=== PATIENT | female | born 1970 | race Caucasian/White ===

== ENCOUNTER 2017-01-19 05:25 | Observation (INO) | payer BC ==
[2017-01-09 13:45] VITALS: BMI 24.0
--- NOTE | 2017-01-18 09:29 | HISTORY & PHYSICAL EXAMINATION ---
DATE OF ADMISSION: 01/19/2017 CHIEF COMPLAINT: Neck pain, arm pain, trapezius pain, scapular pain. HISTORY OF PRESENT ILLNESS: She has MRI scan demonstrating degenerative changes at C3-C4 cervical spine. No gross instability. Herniation at this level. She has had 2 years duration of symptomatology. She has failed outpatient conservative measures. PAST MEDICAL HISTORY: Positive for osteoarthritis. No carcinoma. No kidney or liver failure. Occasional acid reflux. No angina. No COPD. No diabetes mellitus. PAST SURGICAL HISTORY: Hysterectomy. ALLERGIES: PENICILLIN. SOCIAL HISTORY: Mild smoker, mild ETOH user, no drug usage. REVIEW OF SYSTEMS: Denies any blurred vision, double vision, tinnitus, vertigo. Does have associated neck pain. Admits to some numbness and tingling, no facial issues. Denies anxiety or sleeping issues. Denies chest pain or shortness of breath. No asthma, no wheezing. No nausea, vomiting. No urgency, frequency, dysuria. Her major complaint is musculoskeletal neck pain without any fevers, sweats, chills. PHYSICAL EXAMINATION: VITAL SIGNS: Blood pressure 130/80, pulse of 80, respiratory rate 16. HEAD, EYES, EARS, NOSE, AND THROAT: Pupils react to light and accommodation. Ear, nose and throat clear. No adenopathy. HEART: Normal S1, S2, no S3. LUNGS: Clear to auscultation. No rales, rhonchi or wheezing. ABDOMEN: Soft, nontender. NEUROLOGIC: Intact, 5/5 strength, good sensation, motor ability, no deficit. She has a positive Spurling maneuver with rotation and side bending. Images reviewed demonstrate severe degenerative changes C3-C4 cervical. IMPRESSION: Degenerative changes C3-4 cervical, disc herniation C3-4. DISPOSITION: Includes single level ACDF on 01/19/2017 with iliac crest bone graft.
[~2017-01-19] VITALS: Ht 167.6 cm; Wt 68.2 kg
[2017-01-19] VITALS (18 sets, daily range): BP systolic 92–127; BP diastolic 55–87; PULSE 62–87; TEMP 36.5–37; O2SAT 95–98; Ht 167.6 cm; Wt 68.2 kg
[~2017-01-19 05:25] MED LIST: [UNRECOGNIZED DRUG - CODE] PO
[2017-01-19] MEDS ORDERED: NSS 1000ML IV SCH (06:00)
[2017-01-19] MEDS ORDERED: CEFAZOLIN 2000 MG/60 ML D5W 60 ML IV SCH (06:00)
[2017-01-19] MEDS ORDERED: ROCURONIUM BROMIDE 10 MG/ML 5 ML VIAL ONE (06:43)
[2017-01-19] MEDS ORDERED: PROPOFOL IV EMULSION 10 MG/ML 20 ML VIAL IV ONE (06:43)
[2017-01-19] MEDS ORDERED: FENTANYL CITRATE INJ 50 MCG/1 ML 2 ML VIAL ONE (06:43)
[2017-01-19] MEDS ORDERED: LIDOCAINE HCL 2% 2 ML VIAL (20MG/ML) ONE (06:43)
[2017-01-19] MEDS ORDERED: GLYCOPYRROLATE INJ 0.2 MG/ML VIAL ONE (06:43)
[2017-01-19] MEDS ORDERED: ONDANSETRON INJ 2 MG/ML 2 ML VIAL ONE ×2 (06:43→07:37)
[2017-01-19] MEDS ORDERED: NEOSTIGMINE METHYLSULFATE 5 MG/5 ML SYR ONE (06:43)
[2017-01-19] MEDS ORDERED: DEXAMETHASONE SOD INJ 4 MG/ML VIAL ONE ×2 (06:43→07:37)
[2017-01-19] MEDS ORDERED: MIDAZOLAM HCL 1 MG/ML 2ML VIAL ONE (06:44)
[2017-01-19] MEDS ORDERED: HYDROmorphone INJ 2 MG/ML SYR/VIAL ONE (06:44)
[2017-01-19] MEDS ORDERED: GELATIN SPONGE SZ 100 ONE (06:52)
[2017-01-19] MEDS ORDERED: BUPIVACAINE/EPINEPHRINE 0.5% MPF 1:200,000 30 ML VIAL ONE (06:52)
[2017-01-19] MEDS ORDERED: BACITRACIN 50000 UNIT VIAL ONE (06:52)
[2017-01-19] MEDS ORDERED: THROMBIN FOR SOLN 20000 UNIT KIT ONE (06:52)
[2017-01-19] MEDS ORDERED: SODIUM CHLORIDE 0.9% INJ 10 ML VIAL ONE (06:52)
[2017-01-19] MEDS ORDERED: SCOPOLAMINE 1.5 MG TDSY TD ONE (07:10)
--- NOTE | 2017-01-19 07:11 | History & Physical Bridge Note ---
H&P Re-Evaluation Bridge Note: I have examined the patient, reviewed the History & Physical and in the interval since the performance of the History & Physical I have noted the following changes of clinical significance: No changes noted
[2017-01-19] MEDS ORDERED: LACTATED RINGER'S 1000ML 1,000 ML IV PRN (07:16)
[2017-01-19] MEDS ORDERED: METOCLOPRAMIDE HCL INJ 5 MG/ML 2 ML VIAL IV PRN (07:30)
[2017-01-19] MEDS ORDERED: DiphenhydrAMINE HCL 50 MG/ML VIAL IV PRN (07:30)
[2017-01-19] MEDS ORDERED: ONDANSETRON INJ 2 MG/ML 2 ML VIAL IV PRN ×2 (07:30→09:15)
[2017-01-19] MEDS ORDERED: KETAMINE HCL INJ 50 MG/ML 10 ML VIAL ONE (08:04)
--- NOTE | 2017-01-19 09:03 | [facility] Post Operative Brief Note ---
Immediate Operative Summary Operative Date Jan 19, 2017. Pre-Operative Diagnosis Cervical Disc Herniation C3-C4. Post-Operative Diagnosis Same as preoperative. Procedure(s) Performed C3-C4 Anterior Cervical Discectomy and Fusion with Left Iliac Crest Bone Graft Surgeon Backend Tester Surgeon(s) Guilherme Angulo PA-C Estimated Blood Loss 10ML Findings herniated disc Specimens None per surgeon. Complication(s) None Disposition Recovery Room / PACU
--- NOTE | 2017-01-19 09:06 | DIAGNOSTIC IMAGING REPORT ---
Cervical spine, INTRAOPERATIVE FLUOROSCOPY HISTORY: Diffusion. FLUOROSCOPY TIME: 4 seconds. FINDINGS: Intraoperative fluoroscopy was provided for the cervical spine. 1 fluoroscopic spot images were obtained. IMPRESSION: Fluoroscopy provided for a C3-C4 anterior cervical fusion. Electronically signed by: Jordan Schmitt M.D. 01/19/2017 9:04 AM Dictated Date/Time: 01/19/2017 9:03 AM
[2017-01-19] MEDS ORDERED: LORAZEPAM INJ 0.5 MG in SYRINGE 0.75 ML IV PRN (09:15)
[2017-01-19] MEDS ORDERED: MAGNESIUM HYDROXIDE SUSP 30 ML UDC PO PRN (09:15)
[2017-01-19] MEDS ORDERED: [UNRECOGNIZED DRUG - OTHER] PO PRN (09:15)
[2017-01-19] MEDS ORDERED: IBUPROFEN PO PRN (09:15)
[2017-01-19] MEDS ORDERED: RACEPINEPHRINE 2.25% NEBU SOLN 0.5 ML VIAL INH PRN (09:15)
[2017-01-19] MEDS ORDERED: NALOXONE HCL 0.4 MG/1 ML VIAL/CARP IV PRN (09:15)
[2017-01-19] MEDS ORDERED: DEXAMETHASONE INJ 8 MG in SYRINGE 0 ML IV PRN (09:15)
[2017-01-19] MEDS ORDERED: PSEUDOEPHEDRINE PO PRN (09:15)
[2017-01-19] MEDS ORDERED: HYDROmorphone INJ 0.5 MG/0.5 ML SYR IV PRN (09:15)
--- NOTE | 2017-01-19 09:19 | OPERATIVE REPORT ---
DATE OF OPERATION: 01/19/2017 PREOPERATIVE DIAGNOSIS: Disc herniation cervical spine C3-4. POSTOPERATIVE DIAGNOSIS: Same. PROCEDURE: Included single level ACDF cervical spine at C3-4, cervical spine left iliac crest structural autograft. SURGEON: Dr. Dubon. FULL STACK DEVELOPER: Guilherme Angulo PA-C. COMPLICATIONS: Zero. BLOOD LOSS: In total 10 mL. PROCEDURE: The patient was taken to the operating room and general intubated anesthetic provided to the patient, kept supine, scrubbed then prepped and draped sterile. We made a transverse skin incision over 3-4 of the cervical spine, dissecting the soft tissue. We used C-arm guidance. We came right in on the C3-4 interspace. Complete discectomy was obtained. We were laterally to the uncovertebral joints bilaterally, back to the posterior longitudinal ligament. All visible disc material was removed. We then went to the left iliac crest area. We made a skin incision and fascia incision. We fashioned a piece of iliac crest structural autograft. It fit perfectly interspace approximately 7 mm in height and approximately 15 mm in length. An anterior plate by the [place] placed on the anterior aspect of the vertebral bodies 3 and 4 fixed with 12 mm screws. The cross table lateral radiograph was excellent. We irrigated, closed over a Jose Maria drain with 2-0 Vicryl suture and running 4-0 Monocryl. We closed the iliac crest with #1 Vicryl, 2-0 and 3-0 nylon. Sterile dressings applied. Cervical collar applied. We were pleased with the whole procedure. There were no apparent intraoperative complications. Sponge and needle count correct at the close. I attest to the content of the Intraoperative Record and any orders documented therein. Any exceptio ns are noted below.
[2017-01-19] MEDS: FENTANYL CITRATE INJ 50 MCG/1 ML 2 ML VIAL IV PRN ×2 (09:22→09:30)
[2017-01-19] MEDS ORDERED: LABETALOL HCL IV 5 MG/ML 20ML ONE (09:24)
[2017-01-19] MEDS ORDERED: NURSING VERBAL MED ORDER ONE ×3 (09:45→18:45)
[2017-01-19] MEDS: HYDROmorphone INJ 0.5 MG/0.5 ML SYR IV PRN ×2 (09:47→10:12)
[2017-01-19] MEDS ORDERED: IV FLUIDS COMPLETED PRN (10:00)
[2017-01-19] MEDS ORDERED: LABETALOL HCL IV 5 MG/ML 20ML IV PRN (10:15)
[2017-01-19] MEDS ORDERED: HYDROmorphone INJ 1 MG/ML SYR IV PRN (11:00)
--- NOTE | 2017-01-19 11:20 | Anesthesiology Progress Note ---
Anesthesia Post Op Note Date & Time Jan 19, 2017 at 11:14 Vital Signs Pain Intensity: 5 Vital Signs Past 12 Hours Date Time Temp Pulse Resp B/P Pulse Ox O2 Delivery O2 Flow Rate FiO2 01/19/17 10:47 64 16 98 01/19/17 10:47 65 16 01/19/17 10:45 106/69 01/19/17 10:42 63 16 97 01/19/17 10:42 62 16 01/19/17 10:40 120/73 01/19/17 10:37 62 16 01/19/17 10:37 62 16 97 01/19/17 10:35 113/79 01/19/17 10:32 62 16 96 01/19/17 10:32 62 16 01/19/17 10:31 61 16 95 01/19/17 10:31 62 16 01/19/17 10:30 139/88 01/19/17 10:29 36.6 01/19/17 10:26 78 16 01/19/17 10:26 79 16 99 01/19/17 10:25 16 01/19/17 10:25 66 16 118/90 01/19/17 10:20 64 15 152/94 01/19/17 10:20 15 01/19/17 10:15 69 17 154/95 01/19/17 10:15 17 01/19/17 10:10 68 25 01/19/17 10:10 67 25 157/106 94 01/19/17 10:05 61 13 149/96 01/19/17 10:05 13 01/19/17 10:03 159/100 01/19/17 10:00 66 18 161/99 95 01/19/17 10:00 62 18 01/19/17 09:55 63 15 157/95 01/19/17 09:55 15 01/19/17 09:51 144/103 01/19/17 09:50 22 01/19/17 09:50 65 22 01/19/17 09:45 66 19 01/19/17 09:45 66 19 187/112 01/19/17 09:42 175/109 01/19/17 09:40 68 21 01/19/17 09:40 67 21 100 01/19/17 09:39 65 16 100 01/19/17 09:39 63 16 01/19/17 09:34 67 18 99 01/19/17 09:34 67 18 01/19/17 09:30 183/109 01/19/17 09:29 82 19 99 01/19/17 09:29 83 19 01/19/17 09:25 170/106 01/19/17 09:24 93 20 01/19/17 09:24 95 20 99 01/19/17 09:20 178/113 01/19/17 09:19 88 20 98 01/19/17 09:19 89 20 01/19/17 09:16 181/116 01/19/17 09:14 85 17 99 01/19/17 09:14 86 17 01/19/17 09:13 176/110 01/19/17 09:10 181/122 01/19/17 09:09 93 25 188/122 98 01/19/17 09:09 93 25 01/19/17 09:09 36.0 94 20 176/100 99 Mask 10 01/19/17 05:35 36.7 71 18 127/87 96 Room Air Notes Mental Status: alert / awake / arousable, participated in evaluation Pt Amnestic to Procedure: Yes Nausea / Vomiting: adequately controlled Pain: adequately controlled Airway Patency, RR, SpO2: stable & adequate BP & HR: stable & adequate Hydration State: stable & adequate Anesthetic Complications: no major complications apparent Pt was saying she felt like she had phlegm in her throat in PACU and having trouble swallowing. Intubation was routine and atraumatic. I saw nothing in her oropharynx. Unable to suction anything. Pt having no trouble breathing or handling secretions. We sprayed pt's cords w/ lidocaine just prior to intubation to minimize coughing from the tube, so this may be why the pt is feeling this way. I explained this to the pt and told her that this should resolve. I told her to notify her RN right away if she develops trouble breathing or handling secretions. Dr. Dubon made aware by TELECOMMUNICATIONS NETWORK ENGINEER.
[2017-01-19] MEDS ORDERED: PSEUDOEPHEDRINE HCL 30 MG TAB PO PRN (12:00)
[2017-01-19] MEDS ORDERED: IBUPROFEN 200 MG TAB PO PRN (12:00)
[2017-01-19] MEDS: SODIUM CHLORIDE 0.9% 1000ML 1,000 ML IV SCH ×2 (12:42→23:13)
[2017-01-19] MEDS: DEXAMETHASONE INJ 6 MG in SYRINGE 0 ML IV SCH ×2 (13:24→21:26)
[2017-01-19] MEDS: CLINDAMYCIN IV 600 MG in DEXTROSE 5% ADD-VANTAGE 50ML 50 ML IV SCH (16:09)
[2017-01-19] MEDS: OXYCODONE HCL IR 5 MG TAB (IMMEDIATE RELEASE) PO PRN (19:37)
[2017-01-19] MEDS: DOCUSATE SODIUM 100 MG CAP PO SCH (21:26)
[2017-01-20] VITALS (11 sets, daily range): BP systolic 91–103; BP diastolic 51–64; PULSE 56–73; TEMP 36.5–36.9; O2SAT 94–97
[2017-01-20] MEDS: CLINDAMYCIN IV 600 MG in DEXTROSE 5% ADD-VANTAGE 50ML 50 ML IV SCH ×2 (00:19→08:14)
[2017-01-20] MEDS: OXYCODONE HCL IR 5 MG TAB (IMMEDIATE RELEASE) PO PRN ×2 (02:09→09:48)
[2017-01-20] MEDS: DEXAMETHASONE INJ 6 MG in SYRINGE 0 ML IV SCH (06:03)
--- NOTE | 2017-01-20 07:39 | Anesthesiology Progress Note ---
Anesthesia Post Op Note Date & Time Jan 20, 2017 at 07:39 Vital Signs Pain Intensity: 0.0 Vital Signs Past 12 Hours Date Time Temp Pulse Resp B/P Pulse Ox O2 Delivery O2 Flow Rate FiO2 01/20/17 06:04 36.9 67 18 94/57 96 Nasal Cannula 3.0 01/20/17 06:00 36.9 67 18 94/57 96 Nasal Cannula 3.0 Humidified Oxygen 01/20/17 04:00 36.7 65 16 93/58 96 Room Air 3.0 01/20/17 03:54 36.7 65 16 93/58 96 Room Air 01/20/17 03:45 63 14 97 Nasal Cannula 3.0 01/20/17 02:13 36.9 73 16 96/60 96 Nasal Cannula 3.0 01/20/17 02:00 36.9 73 16 96/60 96 Nasal Cannula 3.0 Humidified Oxygen 01/20/17 00:00 97 Nasal Cannula 4.0 Humidified Oxygen 01/20/17 00:00 36.9 62 16 103/64 97 Nasal Cannula 4.0 Humidified Oxygen 01/20/17 00:00 36.9 62 16 103/64 97 Room Air 01/19/17 23:31 74 16 96 Nasal Cannula 4.0 01/19/17 23:10 96 Nasal Cannula 4.0 Humidified Oxygen 01/19/17 22:08 37.0 72 16 97/59 96 Nasal Cannula 4.0 Humidified Oxygen 01/19/17 21:50 37.0 72 16 97/59 96 Nasal Cannula 4.0 Humidified Oxygen 01/19/17 20:31 36.5 69 16 103/62 97 Nasal Cannula 4.0 01/19/17 20:00 36.5 69 15 103/62 95 Nasal Cannula 4.0 Humidified Oxygen 01/19/17 19:41 86 16 96 Nasal Cannula 4.0 Notes Mental Status: alert / awake / arousable, participated in evaluation Pt Amnestic to Procedure: Yes Nausea / Vomiting: adequately controlled Pain: adequately controlled Airway Patency, RR, SpO2: stable & adequate BP & HR: stable & adequate Hydration State: stable & adequate Anesthetic Complications: no major complications apparent
[2017-01-20] MEDS: DOCUSATE SODIUM 100 MG CAP PO SCH (08:14)
--- NOTE | 2017-01-20 08:34 | Discharge Instructions ---
Discharge Instructions Date of Service Jan 20, 2017. Admission Reason for Admission: C3-C4 Cervical Disc Herniation Discharge Discharge Diagnosis / Problem: neck fusion Discharge Goals Goal(s): Improve function Activity Recommendations Activity Limitations: as noted below Lifting Limitations: gradually increase as tolerated Exercise/Sports Limitations: until after follow-up appointment May Resume Sexual Activity: after follow-up appointment Shower/Bathe: keep incision dry Driving or Machine Use: rest, walk, recover . Current Hospital Diet Patient's current hospital diet: Low Fiber Diet Discharge Diet Recommended Diet: Regular Diet Fluid Restriction: None Procedures Procedures Performed: C3-C4 Anterior Cervical Discectomy and Fusion with Left Iliac Crest Bone Graft Pending Studies Studies pending at discharge: no Medical Emergencies . Who to Call and When: Medical Emergencies: If at any time you feel your situation is an emergency, please call 911 immediately. . Non-Emergent Contact Non-Emergency issues call your: Surgeon Call Non-Emergent contact if: you have any medication questions . "Provider Documentation" section prepared by Paul Dubon. VTE Core Measure Inpt VTE Proph given/why not?: Treatment not indicated
--- NOTE | 2017-01-20 08:43 | DISCHARGE SUMMARY ---
DATE OF DISCHARGE: 01/20/2017. SUBJECTIVE: Minimal complaints of pain. Alert, oriented. OBJECTIVE: Vital signs stable. Neurologically intact. Pain improved. ASSESSMENT: Status post discectomy and fusion C3-C4 cervical spine, doing well in the short run. DISPOSITION: Includes instructions, precautions, education. Dressing changed today on her iliac crest and cervical spine. Will discharge her home later on today and will see her back in the office in approximately 10 days. Her cervical collar should be worn most of the time. It can come off if she is eating. It may come off as well if she is sitting in a recliner type chair for support.
[2017-01-21] MEDS ORDERED: BISACODYL 5 MG TABEC PO PRN (06:00)
[2017-01-21] MEDS ORDERED: BISACODYL 10 MG SUPP PR PRN (06:00)
[2017-03-12] MEDS ORDERED: LACTATED RINGER'S 1000ML IV SCH (06:00)
== END 2017-01-20 11:45 | disposition home or self-care (01) ==
LOC: ENRESERVTM → ENRESERVDT → C.ACU 05:25 → C.3E 09:05
PROVIDERS: ADMIT Orthopaedic Surgery Orthopaedic Surgery of the Spine; ATTEND Orthopaedic Surgery Orthopaedic Surgery of the Spine
DX: M50.21 Other cervical disc displacement, high cervical region (principal); F17.200 Nicotine dependence, unspecified, uncomplicated; M19.90 Unspecified osteoarthritis, unspecified site; Z88.0 Allergy status to penicillin

== ENCOUNTER 2022-07-08 12:46 | Observation (INO) ==
[2022-07-08] MEDS ORDERED: OPTIRAY 300 500mL IV ONE (13:03)
--- NOTE | 2022-07-08 13:14 | Emergency Department Note ---
Impression & Plan TIA (transient ischemic attack), Arm paresthesia, left ED Provider Note NAME: DHARMESH CLIFFORD AGE: 51 SEX: F : 1970 ARRIVES VIA: Walk-In INFORMANT: Patient ED PROVIDER(S): Wilbert Soria DO CHIEF COMPLAINT: left sided paraesthesia and loss of vision HPI: Patient is a 51-year-old female with a past medical history of cervical disc disorder who presents to the ER for sudden onset of left-sided paresthesias around 1115 associated with left sided weakness. She also notes with that she lost her vision. She lost vision in the left eye only. This lasted for a total of about 30 seconds. She notes that the left-sided weakness lasted for about a minute and then resolved. No chest pain or shortness of breath. No nausea, vomiting, or diarrhea. No dysuria, urgency, or frequency. No other exacerbating or remitting factors. She feels completely back to baseline upon arrival with the exception of some persistent mild paresthesias just now only located in the left hand. The left lower extremity and left upper extremity paresthesias have completely resolved. ROS: See above HPI for pertinent positives & negatives. A total of 10 systems reviewed and were otherwise negative. PAST MEDICAL HISTORY:See Below PAST SURGICAL HISTORY:See Below FAMILY HISTORY:See Below SOCIAL HISTORY:See Below HOME MEDICATIONS:See Below ALLERGIES:See Below VITALS:See Below PHYSICAL EXAMINATION: GENERAL: Sitting up in bed, alert, well appearing, well nourished, no distress, non-toxic EYE EXAM: normal conjunctiva. PERRL and EOM's intact. OROPHARYNX: no exudate, no erythema, lips, buccal mucosa, and tongue normal and mucous membranes are moist NECK: supple, no nuchal rigidity, no adenopathy, non-tender LUNGS: Clear to auscultation. Normal chest wall mechanics HEART: no murmurs, S1 normal and S2 normal ABDOMEN: abdomen soft, non-tender, normo-active bowel sounds, no masses, no rebound or guarding. UPPER EXTREMITIES: upper extremities are grossly normal. LOWER EXTREMITIES: No pitting edema. NEURO EXAM: Normal sensorium, cranial nerves II-XII intact, normal speech, no weakness of arms, no weakness of legs. No drift. Finger to nose intact. Gross sensation intact. MEDICAL DECISION MAKING: Patient is a 51-year-old female who presents the ER for left-sided weakness and paresthesias and loss of vision of the left eye. Loss of vision and the left- sided weakness resolved after about a minute. Paresthesias lasting consequently she came in. She was a stroke alert from 20 triage take immediately to CT. IV was established blood work is obtained. Labs show no significant leukocytosis or anemia. INR unremarkable. BMP along with LFTs bilirubin and TSH was unremarkable. Troponin was negative. COVID-negative. CTA of the head and neck as well as regular noncontrast of the brain was unremarkable. I spoke with Meggan ruiz as they are initially paged when the stroke alert went out and notified them that her NIH was 0 and she was not TNK candidate. They were agreeable with the history. Paresthesias completely resolved with exception of the left hand. Her pressures were initially elevated and they trended down. She was given aspirin. Discussed with hospitalist for further evaluation. Discussed with Pt concerning signs and symptoms to watch out for. Pt was instructed to follow up with their PCP and discussed with the patient their option to return to the ED at anytime for persistent or worsening symptoms. The appropriate anticipatory guidance and out-patient management, including indications for return to the emergency department, were explained at length to the patient and understood. Triage Nursing notes reviewed. Limited review of prior medical records performed Vital Signs: reviewed and remarkable for HTN Differential diagnosis: Differential Diagnosis includes but is not limited to ischemic Stroke, hemorrhagic stroke, bells palsy, mass, neoplasm, migraine headache, seizure, subarachnoid hemorrhage, TIA, and transient global amnesia. ER treatment provided: See below Diagnostics interpreted by me: ECG: Sinus rhythm rate 76 Normal axis No PVCs T wave inversion V1 and V2 Cardiac Monitoring: An order was placed for continuous cardiac monitoring. The monitor shows a rate of 78 with sinus rhythm. Laboratory studies: As stated above and show below. Imaging studies: CT angios of the head and neck were Consultation(s): Discussed with Meggan ruiz Procedures: none Critical Care: None Past Med/Surg History Medical History Anxiety Tobacco use Surgical History (Updated 07/08/22 @ 14:14 by Jessy Kerns PA-C) H/O inguinal hernia repair History of hysterectomy Family History (Updated 07/08/22 @ 14:14 by Jessy Kerns PA-C) Father No problems noted. Other Cancer Diabetes Social History (Updated 07/08/22 @ 14:58 by Jessy Kerns PA-C) Smoking Status: Current every day smoker Tobacco Type: Cigarettes Cigarettes Per Day: 1ppd x 35 years; Second Hand Exposure: No; Do You Dip or Chew Tobacco: No; Tobacco Cessation Education Requested by Patient: No Hx Alcohol Use: No Hx Substance Use: No Preferred Language: Pashto Communication Ability: Effective Supervisor Yard Required: No Beliefs That Will Affect Care: None Current Living Situation: Spouse Other Information That Helps Us Care for You: No Feels Safe at Home: Yes Safety Concerns: Feels Safe At This Time Assistive Devices: None Allergies Allergies Allergy/AdvReac Type Severity Reaction Status Date / Time Sulfa (Sulfonamide Allergy Severe Shortness Verified 01/19/17 08:19 Antibiotics) of Breath codeine Allergy Intermediate RASH Verified 01/19/17 05:48 hydrocodone Allergy Intermediate RASH Verified 01/19/17 05:48 Penicillins Allergy Intermediate RASH Verified 01/19/17 05:48 clarithromycin Allergy Mild SHORTNESS Verified 01/19/17 05:48 OF BREATH morphine Allergy Unknown RASH Verified 01/19/17 05:48 Home Meds Home Medications Medication Instructions Recorded Confirmed naproxen 500 mg tablet 500 mg PO BID PRN Pain 07/08/22 07/08/22 Results & Data (ED) Vital Signs Vital Signs - 24 hr 07/08/22 12:50 07/08/22 13:00 07/08/22 14:06 Temperature 36.6 C Temperature Source Temporal Artery Scan Pulse Rate 85 Pulse Rate [Apical] 68 Pulse Rhythm Regular Pulse Strength Normal Respiratory Rate 18 Respiratory Effort / Characteristics Non-Labored Spontaneous Respiratory Depth Normal Respiratory Pattern Regular Blood Pressure 173/102 H Blood Pressure [Right Arm] 142/107 H Blood Pressure Mean 125 Blood Pressure Mean [Right Arm] 118 Blood Pressure Position Sitting Blood Pressure Position [Right Arm] Sitting Pulse Oximetry 97 97 Oxygen Delivery Method Room Air Room Air Room Air Sepsis Recent Fever Within 48 Hours No Sepsis New/Unexplained Change in Mental Status No Sepsis Action Taken by Nursing No Action Required 07/08/22 13:20 07/08/22 13:30 07/08/22 14:00 Temperature Temperature Source Pulse Rate 82 75 72 Pulse Rate [Apical] Pulse Rhythm Pulse Strength Respiratory Rate 18 21 19 Respiratory Effort / Characteristics Respiratory Depth Respiratory Pattern Blood Pressure Blood Pressure [Right Arm] Blood Pressure Mean Blood Pressure Mean [Right Arm] Blood Pressure Position Blood Pressure Position [Right Arm] Pulse Oximetry Oxygen Delivery Method Sepsis Recent Fever Within 48 Hours Sepsis New/Unexplained Change in Mental Status Sepsis Action Taken by Nursing 07/08/22 14:04 07/08/22 14:04 Temperature Temperature Source Pulse Rate 65 Pulse Rate [Apical] Pulse Rhythm Pulse Strength Respiratory Rate 17 Respiratory Effort / Characteristics Respiratory Depth Respiratory Pattern Blood Pressure 142/107 H Blood Pressure [Right Arm] Blood Pressure Mean 118 Blood Pressure Mean [Right Arm] Blood Pressure Position Blood Pressure Position [Right Arm] Pulse Oximetry Oxygen Delivery Method Sepsis Recent Fever Within 48 Hours Sepsis New/Unexplained Change in Mental Status Sepsis Action Taken by Nursing Laboratory Data Result diagrams: 07/08/22 13:10 07/08/22 13:10 Lab Results 07/08/22 07/08/22 07/08/22 Range/Units 13:10 13:10 13:10 WBC 9.07 (4.8-10.8) K/ul RBC 4.58 (3.93-5.22) M/uL Hgb 14.1 (12.0-16.0) g/dl Hct 41.2 (34.1-44.9) % MCV 90.0 (80.0-100.0) fL MCH 30.8 (25.0-34.0) pg MCHC 34.2 (32.0-36.0) g/dL RDW Std Deviation 45.9 (36.4-46.3) fL RDW Coeff of Alex 13.8 (11.5-14.5) % Plt Count 275 (130-400) K/uL MPV 10.3 (9.4-12.3) fL Immature Gran % (Auto) 0.3 % Neut % (Auto) 72.3 % Lymph % (Auto) 18.7 % Stanly % (Auto) 6.9 % Eos % (Auto) 0.9 % Baso % (Auto) 0.9 % Neut # (Auto) 6.55 H (1.4-6.5) K/uL Lymph # (Auto) 1.70 (1.2-3.4) K/uL Stanly # (Auto) 0.63 (0.24-0.82) K/uL Eos # (Auto) 0.08 (0-0.50) K/uL Baso # (Auto) 0.08 (0-0.2) K/uL Immature Gran # (Auto) 0.03 H (0.00-0.02) K/uL PT 10.7 (9.0-12.0) Seconds INR 1.0 (0.9-1.1) APTT 29.6 (21.0-31.0) Seconds PTT Ratio 1.1 Sodium 137 (136-145) mmol/L Potassium 3.7 (3.5-5.1) mmol/L Chloride 106 (98-107) mmol/L Carbon Dioxide 26 (21-32) mmol/L Anion Gap 5 (3-11) BUN 14 (6-23) mg/dl Creatinine 0.64 (0.6-1.2) mg/dl Est Cr Clr Drug Dosing 103.9 ml/min Est GFR ( Amer) 119.7 ml/min Est GFR (Non-Af Amer) 103.3 ml/min BUN/Creatinine Ratio 21.9 H (10-20) Glucose 85 (70-99(Fasting)) mg/dl Calcium 9.6 (8.5-10.1) mg/dl Magnesium 2.1 (1.7-2.4) mg/dl Total Bilirubin 0.7 (0.2-1.0) mg/dl AST 13 (13-39) U/L ALT 12 (7-52) U/L Alkaline Phosphatase 92 (34-104) U/L Troponin I High Sens 4.3 (0-14) pg/ml Total Protein 6.9 (6.0-8.3) gm/dl Albumin 4.1 (3.4-5.0) gm/dl Globulin 2.8 (2.5-4.0) gm/dl Albumin/Globulin Ratio 1.5 (0.9-2) TSH (0.300-4.500) uIu/ml SARS-CoV-2, RNA, NAAT (NEGATIVE) 07/08/22 07/08/22 Range/Units 13:14 13:15 WBC (4.8-10.8) K/ul RBC (3.93-5.22) M/uL Hgb (12.0-16.0) g/dl Hct (34.1-44.9) % MCV (80.0-100.0) fL MCH (25.0-34.0) pg MCHC (32.0-36.0) g/dL RDW Std Deviation (36.4-46.3) fL RDW Coeff of Alex (11.5-14.5) % Plt Count (130-400) K/uL MPV (9.4-12.3) fL Immature Gran % (Auto) % Neut % (Auto) % Lymph % (Auto) % Stanly % (Auto) % Eos % (Auto) % Baso % (Auto) % Neut # (Auto) (1.4-6.5) K/uL Lymph # (Auto) (1.2-3.4) K/uL Stanly # (Auto) (0.24-0.82) K/uL Eos # (Auto) (0-0.50) K/uL Baso # (Auto) (0-0.2) K/uL Immature Gran # (Auto) (0.00-0.02) K/uL PT (9.0-12.0) Seconds INR (0.9-1.1) APTT (21.0-31.0) Seconds PTT Ratio Sodium (136-145) mmol/L Potassium (3.5-5.1) mmol/L Chloride (98-107) mmol/L Carbon Dioxide (21-32) mmol/L Anion Gap (3-11) BUN (6-23) mg/dl Creatinine (0.6-1.2) mg/dl Est Cr Clr Drug Dosing ml/min Est GFR ( Amer) ml/min Est GFR (Non-Af Amer) ml/min BUN/Creatinine Ratio (10-20) Glucose (70-99(Fasting)) mg/dl Calcium (8.5-10.1) mg/dl Magnesium (1.7-2.4) mg/dl Total Bilirubin (0.2-1.0) mg/dl AST (13-39) U/L ALT (7-52) U/L Alkaline Phosphatase (34-104) U/L Troponin I High Sens (0-14) pg/ml Total Protein (6.0-8.3) gm/dl Albumin (3.4-5.0) gm/dl Globulin (2.5-4.0) gm/dl Albumin/Globulin Ratio (0.9-2) TSH 1.021 (0.300-4.500) uIu/ml SARS-CoV-2, RNA, NAAT NEGATIVE (NEGATIVE) Administered Medications Aspirin (Aspirin Chew 324 Mg) 324 mg PO NOW STA Stop: 07/08/22 14:12 Last Admin: 07/08/22 14:29 Dose: Not Given Documented By: DESTINEE Ioversol (Optiray 300 500ml) 120 ml IV ONCE ONE Stop: 07/08/22 13:04 Last Admin: 07/08/22 13:03 Dose: 120 ml Documented By: JACI(2) Imaging Data Radiologist's Impression: Chest X-Ray 07/08/22 12:54 XR chest 1V portable HISTORY: Stroke symptoms. COMPARISON: Chest 11/16/2013. FINDINGS: The heart is normal in size. No pleural effusions. No pneumothorax. No focal lung consolidations to suggest pneumonia. No evidence for pulmonary edema. Small linear scarlike density seen within the right lung apex. IMPRESSION: No acute process. ACT 112: Negative or not required by law. Electronically signed by: Uriah Sumner M.D. 07/08/2022 1:[address] 07/08/22 12:[address] OF THE BRAIN; CT ANGIOGRAM OF THE BRAIN; CT ANGIOGRAM OF THE NECK CLINICAL HISTORY: Strokelike symptoms. COMPARISON STUDY: CT of the brain dated 01/15/2012. TECHNIQUE: Unenhanced axial CT scan of the brain is performed. Subsequently, following the IV administration of 120 of Optiray 320, CT angiogram of the head and neck was performed from the aortic arch to the vertex. Images are reviewed in the axial, sagittal, and coronal planes. 3-D MIPS images are created and assessed. IV contrast was administered without complication. All measurements were calculated based on NASCET criteria. A dose lowering technique was utilized adhering to the principles of ALARA. CT DOSE: 1091.20 mGy.cm FINDINGS: Brain parenchyma: The brain parenchyma is normal in appearance. There is no hemorrhage, mass effect, or evidence of acute territorial ischemia by CT criteria. There is no evidence of enhancing mass lesion on the angiogram phase images. The ventricles, sulci, and cisterns are normal in configuration. Mena- white matter differentiation is preserved. No extra-axial fluid collection is seen. Thoracic aorta: Visualized portions of the thoracic aorta are normal in caliber. The aortic arch demonstrates standard 3-vessel anatomy. Right carotid arterial system: Atherosclerotic plaque causes less than 50% luminal narrowing of the distal right common carotid artery. The remainder of the right common carotid artery is widely patent. There is mild to moderate stenosis at the origin of the right external carotid artery. The right internal carotid artery is widely patent. Left carotid arterial system: The left common carotid artery is widely patent, as are the left internal and external carotid arteries. Vertebral arteries: The vertebral arteries are widely patent bilaterally noting left-sided dominance. Subclavian arteries: Widely patent bilaterally. Intracranial vasculature: The internal carotid arteries are patent at the skull base, as are the anterior and middle cerebral arteries bilaterally. The vertebrobasilar system and posterior cerebral arteries are widely patent. There are bilateral posterior communicating arteries. The left vertebral artery is d ominant. The right vertebral artery is diminutive and terminates as the PICA. There is no aneurysm, high-grade stenosis, or focal vessel cut off seen throughout the intracranial circulation. Jugular veins: Patent bilaterally. Dural sinuses: Patent. Lung apices: There is advanced emphysema. Upper lobe lung parenchyma is o therwise clear as imaged. Soft tissues: The visualized pharyngeal soft tissues are normal in appearance noting angiographic phase technique. The oropharyngeal airway appears widely patent. The salivary and thyroid glands are normal in appearance. No cervical lymphadenopathy is seen. Skeletal structures: The skeletal structures appear osteopenic. The calvarium appears intact. The cervical spine is maintained noting mild multilevel cervical spondylosis and postoperative change from C3-C4 spinal fusion. No lytic or blastic lesion is seen. Orbits: The bony orbits are intact. Orbital contents are normal as visualized. Sinuses and mastoids: The paranasal sinuses are clear. The mastoid air cells are well pneumatized. IMPRESSION: 1. There is no hemorrhage, mass effect, or evidence of acute territorial ischemia by CT criteria. 2. Unremarkable CT scan of the brain. 3. Unremarkable CT angiogram of the neck noting significant atherosclerotic plaque in the distal right common carotid artery. 4. Advanced emphysema. ACT 112: Negative or not required by law. Electronically signed by: Gwyn Painting M.D. 07/08/2022 1:41 PM Head CTA 07/08/22 12:[address] OF THE BRAIN; CT ANGIOGRAM OF THE BRAIN; CT ANGIOGRAM OF THE NECK CLINICAL HISTORY: Strokelike symptoms. COMPARISON STUDY: CT of the brain dated 01/15/2012. TECHNIQUE: Unenhanced axial CT scan of the brain is performed. Subsequently, following the IV administration of 120 of Optiray 320, CT angiogram of the head and neck was performed from the aortic arch to the vertex. Images are reviewed in the axial, sagittal, and coronal planes. 3-D MIPS images are created and assessed. IV contrast was administered without complication. All measurements were calculated based on NASCET criteria. A dose lowering technique was utilized adhering to the principles of ALARA. CT DOSE: 1091.20 mGy.cm FINDINGS: Brain parenchyma: The brain parenchyma is normal in appearance. There is no hemorrhage, mass effect, or evidence of acute territorial ischemia by CT criteria. There is no evidence of enhancing mass lesion on the angiogram phase images. The ventricles, sulci, and cisterns are normal in configuration. Mena- white matter differentiation is preserved. No extra-axial fluid collection is seen. Thoracic aorta: Visualized portions of the thoracic aorta are normal in caliber. The aortic arch demonstrates standard 3-vessel anatomy. Right carotid arterial system: Atherosclerotic plaque causes less than 50% luminal narrowing of the distal right common carotid artery. The remainder of the right common carotid artery is widely patent. There is mild to moderate stenosis at the origin of the right external carotid artery. The right internal carotid artery is widely patent. Left carotid arterial system: The left common carotid artery is widely patent, as are the left internal and external carotid arteries. Vertebral arteries: The vertebral arteries are widely patent bilaterally noting left-sided dominance. Subclavian arteries: Widely patent bilaterally. Intracranial vasculature: The internal carotid arteries are patent at the skull base, as are the anterior and middle cerebral arteries bilaterally. The vertebrobasilar system and posterior cerebral arteries are widely patent. There are bilateral posterior communicating arteries. The left vertebral artery is do minant. The right vertebral artery is diminutive and terminates as the PICA. There is no aneurysm, high-grade stenosis, or focal vessel cut off seen throughout the intracranial circulation. Jugular veins: Patent bilaterally. Dural sinuses: Patent. Lung apices: There is advanced emphysema. Upper lobe lung parenchyma is ot herwise clear as imaged. Soft tissues: The visualized pharyngeal soft tissues are normal in appearance noting angiographic phase technique. The oropharyngeal airway appears widely patent. The salivary and thyroid glands are normal in appearance. No cervical lymphadenopathy is seen. Skeletal structures: The skeletal structures appear osteopenic. The calvarium appears intact. The cervical spine is maintained noting mild multilevel cervical spondylosis and postoperative change from C3-C4 spinal fusion. No lytic or blastic lesion is seen. Orbits: The bony orbits are intact. Orbital contents are normal as visualized. Sinuses and mastoids: The paranasal sinuses are clear. The mastoid air cells are well pneumatized. IMPRESSION: 1. There is no hemorrhage, mass effect, or evidence of acute territorial ischemia by CT criteria. 2. Unremarkable CT scan of the brain. 3. Unremarkable CT angiogram of the neck noting significant atherosclerotic plaque in the distal right common carotid artery. 4. Advanced emphysema. ACT 112: Negative or not required by law. Electronically signed by: Gwyn Painting M.D. 07/08/2022 1:41 PM Neck CTA 07/08/22 12:[address] OF THE BRAIN; CT ANGIOGRAM OF THE BRAIN; CT ANGIOGRAM OF THE NECK CLINICAL HISTORY: Strokelike symptoms. COMPARISON STUDY: CT of the brain dated 01/15/2012. TECHNIQUE: Unenhanced axial CT scan of the brain is performed. Subsequently, following the IV administration of 120 of Optiray 320, CT angiogram of the head and neck was performed from the aortic arch to the vertex. Images are reviewed in the axial, sagittal, and coronal planes. 3-D MIPS images are created and assessed. IV contrast was administered without complication. All measurements were calculated based on NASCET criteria. A dose lowering technique was utilized adhering to the principles of ALARA. CT DOSE: 1091.20 mGy.cm FINDINGS: Brain parenchyma: The brain parenchyma is normal in appearance. There is no hemorrhage, mass effect, or evidence of acute territorial ischemia by CT criteria. There is no evidence of enhancing mass lesion on the angiogram phase images. The ventricles, sulci, and cisterns are normal in configuration. Mena- white matter differentiation is preserved. No extra-axial fluid collection is seen. Thoracic aorta: Visualized portions of the thoracic aorta are normal in caliber. The aortic arch demonstrates standard 3-vessel anatomy. Right carotid arterial system: Atherosclerotic plaque causes less than 50% luminal narrowing of the distal right common carotid artery. The remainder of the right common carotid artery is widely patent. There is mild to moderate stenosis at the origin of the right external carotid artery. The right internal carotid artery is widely patent. Left carotid arterial system: The left common carotid artery is widely patent, as are the left internal and external carotid arteries. Vertebral arteries: The vertebral arteries are widely patent bilaterally noting left-sided dominance. Subclavian arteries: Widely patent bilaterally. Intracranial vasculature: The internal carotid arteries are patent at the skull base, as are the anterior and middle cerebral arteries bilaterally. The vertebrobasilar system and posterior cerebral arteries are widely patent. There are bilateral posterior communicating arteries. The left vertebral artery is dom inant. The right vertebral artery is diminutive and terminates as the PICA. There is no aneurysm, high-grade stenosis, or focal vessel cut off seen throughout the intracranial circulation. Jugular veins: Patent bilaterally. Dural sinuses: Patent. Lung apices: There is advanced emphysema. Upper lobe lung parenchyma is oth erwise clear as imaged. Soft tissues: The visualized pharyngeal soft tissues are normal in appearance noting angiographic phase technique. The oropharyngeal airway appears widely patent. The salivary and thyroid glands are normal in appearance. No cervical lymphadenopathy is seen. Skeletal structures: The skeletal structures appear osteopenic. The calvarium appears intact. The cervical spine is maintained noting mild multilevel cervical spondylosis and postoperative change from C3-C4 spinal fusion. No lytic or blastic lesion is seen. Orbits: The bony orbits are intact. Orbital contents are normal as visualized. Sinuses and mastoids: The paranasal sinuses are clear. The mastoid air cells are well pneumatized. IMPRESSION: 1. There is no hemorrhage, mass effect, or evidence of acute territorial ischemia by CT criteria. 2. Unremarkable CT scan of the brain. 3. Unremarkable CT angiogram of the neck noting significant atherosclerotic plaque in the distal right common carotid artery. 4. Advanced emphysema. ACT 112: Negative or not required by law. Electronically signed by: Gwyn Painting M.D. 07/08/2022 1:41 PM Discharge Plan Visit Data Chief Complaint: Neuro Symptoms/Deficit Stated Complaint: L SIDE NUMB, WEAKNESS, NO VISION IN L EYE ED Provider: Wilbert Soria Discharge Problem: TIA (transient ischemic attack), Arm paresthesia, left Patient Disposition: Admitted As Inpatient Discharge Instructions Interventions: ED Discharge Assessment Last Done: 07/08/22 15:36
--- NOTE | 2022-07-08 13:20 | XRay Report ---
XR chest 1V portable HISTORY: Stroke symptoms. COMPARISON: Chest 11/16/2013. FINDINGS: The heart is normal in size. No pleural effusions. No pneumothorax. No focal lung consolida tions to suggest pneumonia. No evidence for pulmonary edema. Small linear scarlike density seen withi n the right lung apex. IMPRESSION: No acute process. ACT 112: Negative or not required by law. Electronically signed by: Uriah Sumner M.D. 07/08/2022 1:19 PM
[2022-07-08 13:34] LABS: Basophils # (auto) 0.08 K/uL (0-0.2); Basophils % (auto) 0.9 %; Eosinophils # (auto) 0.08 K/uL (0-0.50); Eosinophils % (auto) 0.9 %; Hematocrit (blood only) 41.2 % (34.1-44.9); Hemoglobin 14.1 g/dl (12.0-16.0); Immature Granulocytes # (auto) 0.03 K/uL (0.00-0.02); Immature Granulocytes % (auto) 0.3 %; Lymphocytes % (auto) 18.7 %; Mean Corpuscular Hemoglobin 30.8 pg (25.0-34.0); Mean Corpuscular Hgb Conc 34.2 g/dL (32.0-36.0); Mean Platelet Volume 10.3 fL (9.4-12.3); Monocytes # (auto) 0.63 K/uL (0.24-0.82); Monocytes % (auto) 6.9 %; Neutrophils # (auto) 6.55 K/uL (1.4-6.5); Neutrophils % (auto) 72.3 %; Platelet Count 275 K/uL (130-400); RDW Coefficient of Variation 13.8 % (11.5-14.5); RDW Standard Deviation 45.9 fL (36.4-46.3); Red Blood Count 4.58 M/uL (3.93-5.22); White Blood Count 9.07 K/ul (4.8-10.8)
--- NOTE | 2022-07-08 13:43 | CT Scan Report ---
UNENHANCED CT OF THE BRAIN; CT ANGIOGRAM OF THE BRAIN; CT ANGIOGRAM OF THE NECK CLINICAL HISTORY: Strokelike symptoms. COMPARISON STUDY: CT of the brain dated 01/15/2012. TECHNIQUE: Unenhanced axial CT scan of the brain is performed. Subsequently, following the IV adminis tration of 120 of Optiray 320, CT angiogram of the head and neck was performed from the aortic arch t o the vertex. Images are reviewed in the axial, sagittal, and coronal planes. 3-D MIPS images are cre ated and assessed. IV contrast was administered without complication. All measurements were calculate d based on NASCET criteria. A dose lowering technique was utilized adhering to the principles of ALA RA. CT DOSE: 1091.20 mGy.cm FINDINGS: Brain parenchyma: The brain parenchyma is normal in appearance. There is no hemorrhage, mass effect, or evidence of acute territorial ischemia by CT criteria. There is no evidence of enhancing mass lesi on on the angiogram phase images. The ventricles, sulci, and cisterns are normal in configuration. Gr ay-white matter differentiation is preserved. No extra-axial fluid collection is seen. Thoracic aorta: Visualized portions of the thoracic aorta are normal in caliber. The aortic arch demo nstrates standard 3-vessel anatomy. Right carotid arterial system: Atherosclerotic plaque causes less than 50% luminal narrowing of the d istal right common carotid artery. The remainder of the right common carotid artery is widely patent. There is mild to moderate stenosis at the origin of the right external carotid artery. The right int ernal carotid artery is widely patent. Left carotid arterial system: The left common carotid artery is widely patent, as are the left university internship al and external carotid arteries. Vertebral arteries: The vertebral arteries are widely patent bilaterally noting left-sided dominance. Subclavian arteries: Widely patent bilaterally. Intracranial vasculature: The internal carotid arteries are patent at the skull base, as are the ante rior and middle cerebral arteries bilaterally. The vertebrobasilar system and posterior cerebral alhaji dedrick are widely patent. There are bilateral posterior communicating arteries. The left vertebral alhaji ry is dominant. The right vertebral artery is diminutive and terminates as the PICA. There is no aneu rysm, high-grade stenosis, or focal vessel cut off seen throughout the intracranial circulation. Jugular veins: Patent bilaterally. Dural sinuses: Patent. Lung apices: There is advanced emphysema. Upper lobe lung parenchyma is otherwise clear as imaged. Soft tissues: The visualized pharyngeal soft tissues are normal in appearance noting angiographic pha se technique. The oropharyngeal airway appears widely patent. The salivary and thyroid glands are nor mal in appearance. No cervical lymphadenopathy is seen. Skeletal structures: The skeletal structures appear osteopenic. The calvarium appears intact. The cer vical spine is maintained noting mild multilevel cervical spondylosis and postoperative change from C 3-C4 spinal fusion. No lytic or blastic lesion is seen. Orbits: The bony orbits are intact. Orbital contents are normal as visualized. Sinuses and mastoids: The paranasal sinuses are clear. The mastoid air cells are well pneumatized. IMPRESSION: 1. There is no hemorrhage, mass effect, or evidence of acute territorial ischemia by CT criteria. 2. Unremarkable CT scan of the brain. 3. Unremarkable CT angiogram of the neck noting significant atherosclerotic plaque in the distal righ t common carotid artery. 4. Advanced emphysema. ACT 112: Negative or not required by law. Electronically signed by: Gwyn Painting M.D. 07/08/2022 1:41 PM
[2022-07-08 13:49] LABS: Partial Thromboplastin Ratio 1.1; Partial Thromboplastin Time 29.6 Seconds (21.0-31.0); Prothrombin Time 10.7 Seconds (9.0-12.0)
[2022-07-08 14:01] LABS: Albumin Globulin Ratio 1.5 (0.9-2); Albumin Level 4.1 gm/dl (3.4-5.0); BUN Creatinine Ratio 21.9 (10-20); Bilirubin,Total 0.7 mg/dl (0.2-1.0); Calcium 9.6 mg/dl (8.5-10.1); Creatinine Clr Calc Pharmacy 103.9 ml/min; Est GFR (African American) 119.7 ml/min; Est GFR (Non-African American) 103.3 ml/min; Globulin 2.8 gm/dl (2.5-4.0); Magnesium 2.1 mg/dl (1.7-2.4); Potassium 3.7 mmol/L (3.5-5.1); Total Protein 6.9 gm/dl (6.0-8.3); Troponin I High Sensitivity 4.3 pg/ml (0-14)
[2022-07-08] MEDS ORDERED: ASPIRIN CHEW 324 MG PO STA (14:11)
--- NOTE | 2022-07-08 14:14 | History & Physical Report ---
Date of Service July 08, 2022 Assessment & Plan (1) Stroke-like symptoms: Plan: Patient is 51 y/o F with PMH anxiety, tobacco use presented to ER with c/o left sided weakness. Patient reports around 11:15am today was washing her deck when had sudden onset of vision loss to left eye, left arm and leg paresthesias and weakness. Left eye vision loss lasted ~ 30 seconds and left upper and lower extremity weakness lasted one minute. Since ER arrival her paresthesias are resolving and now just remain to left hand. In ER patient hypertensive BP: 173/102, 142/107, labs unremarkable CT head, CTA head: No hemorrhage, mass effect, or evidence of acute territorial ischemia by CT criteria. CTA neck: Unremarkable CTA of the neck, <50% atherosclerotic plaque in the distal right common carotid artery. Had telestroke neurology consult in ER recommended hospitalization for further stroke workup. Patient took Anacin (400mg aspirin +32mg caffeine OTC med DDX: TIA, stroke, atypical migraine -Tele to monitor for arrhythmias -Lipid, A1c, TSH in am -MRI brain -echo with bubble study -aspiration precautions -PT/OT consult -Start daily aspirin -allow permissive HTN, labetalol SBP>180 in 1st 24 hrs -neurology consult (2) Elevated blood pressure reading: Plan: In ER BP: 173/102, 142/107 No history hypertension -Allow permissive HTN with possible stroke -Monitor (3) Tobacco use: Plan: -Smoking cessation encouraged. Patient motivated -Nicotine patch DVT Prophylaxis -SCDs Full Code as per discussion with pt Follows with Dr Motley for routine care Pt was seen and care coordinated with Dr Malave. See addendum History of Present Illness Chief Complaint: weakness Primary Care Provider: Kiki Motley DO Patient is 51 y/o F with PMH anxiety, tobacco use presented to ER with c/o left sided weakness. Patient reports around 11:15am today was washing her deck when had sudden onset of vision loss to left eye, left arm and leg paresthesias and weakness. Patient reports almost fell secondary to left leg weakness. Her left eye vision loss lasted approximately 30 seconds and left upper and lower extremity weakness lasted one minute. Since ER arrival her paresthesias are resolving and now just remain to left hand. She reports taking Anacin (400mg aspirin +32mg caffeine OTC med) prior to arrival. She reports +COVID 06/15/22 with URI symptoms that have completely resolved. Patient states has been under a lot of stress recently with of her brother and mother. Denies fever/chills, diaphoresis, N/V/D/C, LEIGH, dizziness, syncope, neck pain, CP, SOB, orthopnea, palpitations, cough, sore throat, choking, otalgia, rhinorrhea, abdominal pain, extremity edema, rashes, urinary symptoms. In ER patient hypertensive, CT head, CTA head and neck unremarkable. Had te lestroke neurology consult in ER recommended hospitalization for further stroke workup. Allergies Allergy/AdvReac Type Severity Reaction Status Date / Time Sulfa (Sulfonamide Allergy Severe Shortness Verified 01/19/17 08:19 Antibiotics) of Breath codeine Allergy Intermediate RASH Verified 01/19/17 05:48 hydrocodone Allergy Intermediate RASH Verified 01/19/17 05:48 Penicillins Allergy Intermediate RASH Verified 01/19/17 05:48 clarithromycin Allergy Mild SHORTNESS Verified 01/19/17 05:48 OF BREATH morphine Allergy Unknown RASH Verified 01/19/17 05:48 Home Medications Medication Instructions Recorded Confirmed Type naproxen 500 mg tablet 500 mg PO BID PRN Pain 07/08/22 07/08/22 History Past Med/Surg History Medical History Anxiety Tobacco use Surgical History (Updated 07/08/22 @ 14:14 by Jessy Kerns PA-C) H/O inguinal hernia repair History of hysterectomy Family History (Updated 07/08/22 @ 14:14 by Jessy Kerns PA-C) Father No problems noted. Other Cancer Diabetes Social History (Updated 07/08/22 @ 14:58 by Jessy Kerns PA-C) Smoking Status: Current every day smoker Tobacco Type: Cigarettes Cigarettes Per Day: 1ppd x 35 years; Second Hand Exposure: No; Do You Dip or Chew Tobacco: No; Tobacco Cessation Education Requested by Patient: No Hx Alcohol Use: No Hx Substance Use: No Preferred Language: Japanese Communication Ability: Effective Center Medical Director Required: No Beliefs That Will Affect Care: None Current Living Situation: Spouse Other Information That Helps Us Care for You: No Feels Safe at Home: Yes Safety Concerns: Feels Safe At This Time Assistive Devices: None Review of Systems Review of Systems: All systems reviewed & are unremarkable except as noted in HPI & below Physical Exam Physical Exam: General: no distress, WDWN Head: normocephalic, atraumatic Eyes: PERRL, EOM's intact, conjunctiva non-injected, anicteric ENT: normal inspection external ears, nose, mucous membranes moist Neck: supple, trachea midline Lungs: clear, no respiratory distress, no wheezing/rhonchi/rales CV: RRR, no murmur, no pretibial edema Abd: normal BS, soft, non-tender Ext: no cyanosis, no calf tenderness Neuro: A&O x 3, normal affect. Visual trimble intact. No nystagmus. Facial sensation is intact and symmetric. The face is strong and symmetric. Hearing grossly intact. Soft palate elevates symmetrically, no dysarthria. Shoulder shrug intact. Tongue is midline, normal movement, no fasciculations. muscle tone normal. Strength 5/5 throughout. Bilateral arm and leg sensation intact and symmetric Skin: warm, dry Results & Data Results & Data ([facility]) Vital Signs (Past 12 Hours) Vital Signs Temp Pulse Pulse Resp BP BP Pulse Ox 07/08/22 14:06 68 142/107 H 07/08/22 13:00 97 07/08/22 12:50 36.6 C 85 18 173/102 H 97 O2 Del Method 07/08/22 14:06 Room Air 07/08/22 13:00 Room Air 07/08/22 12:50 Room Air Laboratory Results Short CBC 07/08/22 Range/Units 13:10 WBC 9.07 (4.8-10.8) K/ul Hgb 14.1 (12.0-16.0) g/dl Hct 41.2 (34.1-44.9) % Plt Count 275 (130-400) K/uL BMP 07/08/22 13:10 Sodium 137 Potassium 3.7 Chloride 106 Carbon Dioxide 26 BUN 14 Creatinine 0.64 Glucose 85 Calcium 9.6 Liver Function 07/08/22 Range/Units 13:10 Total Bilirubin 0.7 (0.2-1.0) mg/dl AST 13 (13-39) U/L ALT 12 (7-52) U/L Alkaline Phosphatase 92 (34-104) U/L Albumin 4.1 (3.4-5.0) gm/dl Diagnostic Findings Chest X-Ray 07/08/22 12:54 XR chest 1V portable HISTORY: Stroke symptoms. COMPARISON: Chest 11/16/2013. FINDINGS: The heart is normal in size. No pleural effusions. No pneumothorax. No focal lung consolidations to suggest pneumonia. No evidence for pulmonary edema. Small linear scarlike density seen within the right lung apex. IMPRESSION: No acute process. ACT 112: Negative or not required by law. Electronically signed by: Uriah Sumner M.D. 07/08/2022 1:[address] 07/08/22 12:[address] OF THE BRAIN; CT ANGIOGRAM OF THE BRAIN; CT ANGIOGRAM OF THE NECK CLINICAL HISTORY: Strokelike symptoms. COMPARISON STUDY: CT of the brain dated 01/15/2012. TECHNIQUE: Unenhanced axial CT scan of the brain is performed. Subsequently, following the IV administration of 120 of Optiray 320, CT angiogram of the head and neck was performed from the aortic arch to the vertex. Images are reviewed in the axial, sagittal, and coronal planes. 3-D MIPS images are created and assessed. IV contrast was administered without complication. All measurements were calculated based on NASCET criteria. A dose lowering technique was utilized adhering to the principles of ALARA. CT DOSE: 1091.20 mGy.cm FINDINGS: Brain parenchyma: The brain parenchyma is normal in appearance. There is no hemorrhage, mass effect, or evidence of acute territorial ischemia by CT criteria. There is no evidence of enhancing mass lesion on the angiogram phase images. The ventricles, sulci, and cisterns are normal in configuration. Mena- white matter differentiation is preserved. No extra-axial fluid collection is seen. Thoracic aorta: Visualized portions of the thoracic aorta are normal in caliber. The aortic arch demonstrates standard 3-vessel anatomy. Right carotid arterial system: Atherosclerotic plaque causes less than 50% luminal narrowing of the distal right common carotid artery. The remainder of the right common carotid artery is widely patent. There is mild to moderate stenosis at the origin of the right external carotid artery. The right internal carotid artery is widely patent. Left carotid arterial system: The left common carotid artery is widely patent, as are the left internal and external carotid arteries. Vertebral arteries: The vertebral arteries are widely patent bilaterally noting left-sided dominance. Subclavian arteries: Widely patent bilaterally. Intracranial vasculature: The internal carotid arteries are patent at the skull base, as are the anterior and middle cerebral arteries bilaterally. The vertebrobasilar system and posterior cerebral arteries are widely patent. There are bilateral posterior communicating arteries. The left vertebral artery is dominant. The right vertebral artery is diminutive and terminates as the PICA. There is no aneurysm, high-grade stenosis, or focal vessel cut off seen throughout the intracranial circulation. Jugular veins: Patent bilaterally. Dural sinuses: Patent. Lung apices: There is advanced emphysema. Upper lobe lung parenchyma is otherwise clear as imaged. Soft tissues: The visualized pharyngeal soft tissues are normal in appearance noting angiographic phase technique. The oropharyngeal airway appears widely patent. The salivary and thyroid glands are normal in appearance. No cervical lymphadenopathy is seen. Skeletal structures: The skeletal structures appear osteopenic. The calvarium appears intact. The cervical spine is maintained noting mild multilevel cervical spondylosis and postoperative change from C3-C4 spinal fusion. No lytic or blastic lesion is seen. Orbits: The bony orbits are intact. Orbital contents are normal as visualized. Sinuses and mastoids: The paranasal sinuses are clear. The mastoid air cells are well pneumatized. IMPRESSION: 1. There is no hemorrhage, mass effect, or evidence of acute territorial ischemia by CT criteria. 2. Unremarkable CT scan of the brain. 3. Unremarkable CT angiogram of the neck noting significant atherosclerotic plaque in the distal right common carotid artery. 4. Advanced emphysema. ACT 112: Negative or not required by law. Electronically signed by: Gwyn Painting M.D. 07/08/2022 1:41 PM Head CTA 07/08/22 12:[address] OF THE BRAIN; CT ANGIOGRAM OF THE BRAIN; CT ANGIOGRAM OF THE NECK CLINICAL HISTORY: Strokelike symptoms. COMPARISON STUDY: CT of the brain dated 01/15/2012. TECHNIQUE: Unenhanced axial CT scan of the brain is performed. Subsequently, following the IV administration of 120 of Optiray 320, CT angiogram of the head and neck was performed from the aortic arch to the vertex. Images are reviewed in the axial, sagittal, and coronal planes. 3-D MIPS images are created and assessed. IV contrast was administered without complication. All measurements were calculated based on NASCET criteria. A dose lowering technique was utilized adhering to the principles of ALARA. CT DOSE: 1091.20 mGy.cm FINDINGS: Brain parenchyma: The brain parenchyma is normal in appearance. There is no hemorrhage, mass effect, or evidence of acute territorial ischemia by CT criteria. There is no evidence of enhancing mass lesion on the angiogram phase images. The ventricles, sulci, and cisterns are normal in configuration. Mena- white matter differentiation is preserved. No extra-axial fluid collection is seen. Thoracic aorta: Visualized portions of the thoracic aorta are normal in caliber. The aortic arch demonstrates standard 3-vessel anatomy. Right carotid arterial system: Atherosclerotic plaque causes less than 50% luminal narrowing of the distal right common carotid artery. The remainder of the right common carotid artery is widely patent. There is mild to moderate stenosis at the origin of the right external carotid artery. The right internal carotid artery is widely patent. Left carotid arterial system: The left common carotid artery is widely patent, as are the left internal and external carotid arteries. Vertebral arteries: The vertebral arteries are widely patent bilaterally noting left-sided dominance. Subclavian arteries: Widely patent bilaterally. Intracranial vasculature: The internal carotid arteries are patent at the skull base, as are the anterior and middle cerebral arteries bilaterally. The vertebrobasilar system and posterior cerebral arteries are widely patent. There are bilateral posterior communicating arteries. The left vertebral artery is dominant. The right vertebral artery is diminutive and terminates as the PICA. There is no aneurysm, high-grade stenosis, or focal vessel cut off seen throu ghout the intracranial circulation. Jugular veins: Patent bilaterally. Dural sinuses: Patent. Lung apices: There is advanced emphysema. Upper lobe lung parenchyma is otherwise clear as imaged. Soft tissues: The visualized pharyngeal soft tissues are normal in appearance noting angiographic phase technique. The oropharyngeal airway appears widely patent. The salivary and thyroid glands are normal in appearance. No cervical lymphadenopathy is seen. Skeletal structures: The skeletal structures appear osteopenic. The calvarium appears intact. The cervical spine is maintained noting mild multilevel cervical spondylosis and postoperative change from C3-C4 spinal fusion. No lytic or blastic lesion is seen. Orbits: The bony orbits are intact. Orbital contents are normal as visualized. Sinuses and mastoids: The paranasal sinuses are clear. The mastoid air cells are well pneumatized. IMPRESSION: 1. There is no hemorrhage, mass effect, or evidence of acute territorial ischemia by CT criteria. 2. Unremarkable CT scan of the brain. 3. Unremarkable CT angiogram of the neck noting significant atherosclerotic plaque in the distal right common carotid artery. 4. Advanced emphysema. ACT 112: Negative or not required by law. Electronically signed by: Gwyn Painting M.D. 07/08/2022 1:41 PM Neck CTA 07/08/22 12:[address] OF THE BRAIN; CT ANGIOGRAM OF THE BRAIN; CT ANGIOGRAM OF THE NECK CLINICAL HISTORY: Strokelike symptoms. COMPARISON STUDY: CT of the brain dated 01/15/2012. TECHNIQUE: Unenhanced axial CT scan of the brain is performed. Subsequently, following the IV administration of 120 of Optiray 320, CT angiogram of the head and neck was performed from the aortic arch to the vertex. Images are reviewed in the axial, sagittal, and coronal planes. 3-D MIPS images are created and assessed. IV contrast was administered without complication. All measurements were calculated based on NASCET criteria. A dose lowering technique was utilized adhering to the principles of ALARA. CT DOSE: 1091.20 mGy.cm FINDINGS: Brain parenchyma: The brain parenchyma is normal in appearance. There is no hemorrhage, mass effect, or evidence of acute territorial ischemia by CT criteria. There is no evidence of enhancing mass lesion on the angiogram phase images. The ventricles, sulci, and cisterns are normal in configuration. Mena- white matter differentiation is preserved. No extra-axial fluid collection is seen. Thoracic aorta: Visualized portions of the thoracic aorta are normal in caliber. The aortic arch demonstrates standard 3-vessel anatomy. Right carotid arterial system: Atherosclerotic plaque causes less than 50% luminal narrowing of the distal right common carotid artery. The remainder of the right common carotid artery is widely patent. There is mild to moderate stenosis at the origin of the right external carotid artery. The right internal carotid artery is widely patent. Left carotid arterial system: The left common carotid artery is widely patent, as are the left internal and external carotid arteries. Vertebral arteries: The vertebral arteries are widely patent bilaterally noting left-sided dominance. Subclavian arteries: Widely patent bilaterally. Intracranial vasculature: The internal carotid arteries are patent at the skull base, as are the anterior and middle cerebral arteries bilaterally. The vertebrobasilar system and posterior cerebral arteries are widely patent. There are bilateral posterior communicating arteries. The left vertebral artery is dominant. The right vertebral artery is diminutive and terminates as the PICA. There is no aneurysm, high-grade stenosis, or focal vessel cut off seen throughout the intracranial circulation. Jugular veins: Patent bilaterally. Dural sinuses: Patent. Lung apices: There is advanced emphysema. Upper lobe lung parenchyma is otherwise clear as imaged. Soft tissues: The visualized pharyngeal soft tissues are normal in appearance noting angiographic phase technique. The oropharyngeal airway appears widely patent. The salivary and thyroid glands are normal in appearance. No cervical lymphadenopathy is seen. Skeletal structures: The skeletal structures appear osteopenic. The calvarium appears intact. The cervical spine is maintained noting mild multilevel cervical spondylosis and postoperative change from C3-C4 spinal fusion. No lytic or blastic lesion is seen. Orbits: The bony orbits are intact. Orbital contents are normal as visualized. Sinuses and mastoids: The paranasal sinuses are clear. The mastoid air cells are well pneumatized. IMPRESSION: 1. There is no hemorrhage, mass effect, or evidence of acute territorial ischemia by CT criteria. 2. Unremarkable CT scan of the brain. 3. Unremarkable CT angiogram of the neck noting significant atherosclerotic plaque in the distal right common carotid artery. 4. Advanced emphysema. ACT 112: Negative or not required by law. Electronically signed by: Gwyn Painting M.D. 07/08/2022 1:41 PM ECG Rate (beats per minute): 76 Rhythm: sinus rhythm Supervising Physician Co-Signing Physician Notes HPI 51-year-old lady with PMH of anxiety and current tobacco use [1 packs a day] presented to our ED with complaint of left eye vision loss x transient, left arm and left leg paresthesia and weakness. She does not have a history of NM or stroke in herself or in the family. Patient provided smoking cessation counseling. MRI without acute findings, echo reviewed. Lipid panel in AM. Neurology consult. Permissive hypertension, aspirin, PT/OT. Upon examination: GENERAL: Alert and oriented x3. NAD, on RA. HEENT: No pallor, no icterus. Pupils equal, round and reactive to light. Oral mucosa moist. NECK: No JVD, no neck masses. HEART: S1 and S2 heard. Regular rate and rhythm. No murmur, no gallop. RESPIRATORY SYSTEM: Normal AP diameter. No accessory muscle use. No wheezing, no crackles. ABDOMEN: Soft, bowel sounds present, nontender, no distention. CENTRAL NERVOUS SYSTEM: No facial droop. Speech is clear. Obeys simple commands. Moves extremities. EXTREMITIES: No edema, no erythema seen. I have seen and examined the patient and have discussed the case with the provider above. I agree with the assessment and plan as stated.
[2022-07-08] MEDS ORDERED: PHARMACIST DISCHARGE MED REC CONSULT PRN (15:35)
[2022-07-08] MEDS ORDERED: LABETALOL HCL IV 5 MG/ML 20ML IV PRN (15:35)
[2022-07-08] MEDS ORDERED: ACETAMINOPHEN 325 MG TAB PO PRN (15:35)
[2022-07-08] MEDS ORDERED: ONDANSETRON INJ 2 MG/ML 2 ML VIAL IV PRN (15:35)
[2022-07-08] MEDS ORDERED: POLYETHYLENE (MIRALAX) 17 GM PACK PO PRN (15:35)
--- NOTE | 2022-07-08 15:58 | Electrocardiogram Report ---
Test Reason : Blood Pressure : / mmHG Vent. Rate : 076 BPM Atrial Rate : 076 BPM P-R Int : 142 ms QRS Dur : 074 ms QT Int : 394 ms P-R-T Axes : 071 066 056 degrees QTc Int : 443 ms Normal sinus rhythm Left atrial enlargement Borderline ECG When compared with ECG of 16-NOV-2013 20:21, No significant change Confirmed by Zoltan Powell ([id number]) on 07/08/2022 3:57:46 PM Referred By: REFERRED SELF Confirmed By:Zoltan Powell
--- NOTE | 2022-07-08 17:29 | Magnetic Resonance Report ---
MRI OF THE BRAIN WITHOUT IV CONTRAST CLINICAL HISTORY: Left-sided weakness and numbness. COMPARISON STUDY: CT of the brain dated 07/08/2022. TECHNIQUE: MRI of the brain was performed utilizing various T1 and T2-weighted sequences in the axial , sagittal, and coronal planes. IV contrast was not administered for this examination. FINDINGS: Brain parenchyma: The brain parenchyma is normal in appearance. There is no hemorrhage or mass effect . There is no restricted diffusion to suggest acute ischemia. Mena-white matter differentiation is pr eserved. No extra-axial fluid collection is seen. The cerebellar tonsils are normal in configuration. Ventricles, sulci, and cisterns: Normal in configuration. Pituitary and sella: Unremarkable. Intracranial vasculature: Normal flow voids are maintained at the skull base. Orbits: The bony orbits are grossly intact. Orbital contents are normal in appearance. Sinuses and mastoids: Clear. Calvarium: Unremarkable. Cervical cord: Partially visualized cervical spinal cord is normal in morphology and signal intensity . IMPRESSION: No acute intracranial abnormality. ACT 112: Negative or not required by law. Electronically signed by: Gwyn Painting M.D. 07/08/2022 5:27 PM
--- NOTE | 2022-07-08 19:30 | Neurology Consultation ---
Date of Consultation July 08, 2022 Assessment & Plan (1) TIA (transient ischemic attack): (2) Arm paresthesia, left: (3) Stroke-like symptoms: (4) Tobacco use: (5) Transient visual loss of left eye: Plan ASSESSMENT and PLAN/RECOMMENDATIONS: 1. Transient neurological symptoms, probable transient ischemic attack. Impression: The patient had short lasting left eye vision loss (versus left homonymous hemianopia), and left-sided hemiparesthesia with hemiparesis, which resolved quickly. Stroke work-up has been unremarkable other than right internal carotid artery plaque. The patient has been smoker which is a stroke risk factor. There is no history to suggest hypercoagulable state. She denies having palpitations, or cardiac rhythm abnormality other than tachycardia during recent event. There is no history to suggest migraine equivalent or other stroke mimickers. Plan: We will keep the patient on aspirin 81 mg daily. Fasting lipid profile, hemoglobin A1c and TSH. Goal LDL level is lower than 70. Treat on statin as needed. No indication for permissive hypertension. Goal blood pressure is below 130/80. Telemetry monitoring overnight. Cessation of smoking strongly recommended. Other stroke risk factors and symptoms are discussed with the patient. Daily exercise, healthy diet recommended. If the patient stays symptom-free, then she can be discharged home tomorrow morning. Follow-up with neurology clinic in a month. Thank you for the consultation. History of Present Illness Reason for Consultation: Transient neurological symptoms Requesting Physician: Siva Malave MD Attending Physician: Siva Malave MD History of Present Illness The patient is a 51-year-old right handed female, who presented to the emergency department after having short lasting neurological symptoms around 11:15 AM today. The patient was washing her deck, and suddenly noticed left eye vision loss, left arm and leg weakness with paresthesia. Visual impairment, and weakness resolved in less than a minute. When she presented emergency department, she was having only residual slight left hand numbness, and she was not considered a candidate for thrombolytic treatment. The patient denied experiencing head and neck trauma, headache, or migraine attacks. She has no history of having stroke symptoms. In emergency department, head CT was unremarkable and CT angiogram of head and neck did not show hemodynamically significant stenosis but right carotid artery plaque. The patient works as a nurse, and she has not been on any medications. She denies feeling palpitations in the past, but during symptoms, she was anxious with racing heartbeats. Initially, blood pressure was elevated, which has been normalized without tr eatment. She was admitted for stroke work-up after started on aspirin. Since admission, her left hand paresthesia has been resolved as well. She denies any new neurological symptoms. Telemetric monitoring has been showing sinus rhythm. Echocardiogram was unremarkable. Brain MRI did not show acute pathology. The patient denies history of blood clotting, miscarriages, or family history of ear ly strokes. She is a smoker. I have reviewed the patient's chart including imaging studies and visualized them personally. I have discussed the case with the patient and answer her questions in detail. Allergies Allergy/AdvReac Type Severity Reaction Status Date / Time Sulfa (Sulfonamide Allergy Severe Shortness Verified 01/19/17 08:19 Antibiotics) of Breath codeine Allergy Intermediate RASH Verified 01/19/17 05:48 hydrocodone Allergy Intermediate RASH Verified 01/19/17 05:48 Penicillins Allergy Intermediate RASH Verified 01/19/17 05:48 clarithromycin Allergy Mild SHORTNESS Verified 01/19/17 05:48 OF BREATH morphine Allergy Unknown RASH Verified 01/19/17 05:48 Home Medications Medication Instructions Recorded Confirmed Type naproxen 500 mg tablet 500 mg PO BID PRN Pain 07/08/22 07/08/22 History Patient History Medical History Anxiety Tobacco use Surgical History H/O inguinal hernia repair History of hysterectomy Family History Father No problems noted. Other Cancer Diabetes Social History Smoking Status: Current every day smoker Tobacco Type: Cigarettes Cigarettes Per Day: 1ppd x 35 years; Second Hand Exposure: No; Do You Dip or Chew Tobacco: No; Tobacco Cessation Education Requested by Patient: No Hx Alcohol Use: No Hx Substance Use: No Preferred Language: Maltese Communication Ability: Effective Skelp Processor Required: No Beliefs That Will Affect Care: None Current Living Situation: Spouse Other Information That Helps Us Care for You: No Feels Safe at Home: Yes Safety Concerns: Feels Safe At This Time Assistive Devices: None Review of Systems Review of Systems: All systems reviewed & are unremarkable except as noted in HPI & below Physical Exam Physical Exam: General Examination: Constitutional: Well developed person in no acute distress. HENT: Normal exam with inspection. CV: Hearth rhtyhm is regular. Neck: Supple, no carotid bruits. Lungs: Non-labored and comfortable breathing. Abdomen: Soft, non-tender, non-distended. Skin: No rash or ecchymosis. Extremities: No edema or cyanosis NEUROLOGICAL EXAMINATION: Mental Status: Alert and oriented to place, person and time. Cranial Nerves: II-XII are intact. No nystagmus. Funduscopy: Normal looking optic discs. Motor: 5/5 in all extremities without asymmetry. Tone: Normal without spasticity or rigidity. Sensory: Intact to all sensory modalities. Coordination: No dysmetria with FTN testing. Speech: Fluent. Comprehension is intact. Gait: Normal. No ataxia or abnormal walking pattern. Musculoskeletal: Normal muscle bulk, no atrophy. Results & Data ([facility]) Vital Signs (Past 12 Hours) Vital Signs Temp Pulse Pulse Resp BP BP Pulse Ox 07/08/22 19:15 36.7 C 69 18 125/83 97 07/08/22 17:40 64 07/08/22 17:21 61 16 144/90 H 97 07/08/22 16:43 64 20 151/89 H 97 07/08/22 16:00 67 24 07/08/22 16:00 130/88 07/08/22 15:30 66 20 97 07/08/22 15:30 144/87 H 07/08/22 15:01 89 20 96 07/08/22 14:30 71 20 07/08/22 14:30 179/104 H 07/08/22 14:04 65 17 07/08/22 14:04 142/107 H 07/08/22 14:00 72 19 07/08/22 13:30 75 21 07/08/22 13:20 82 18 07/08/22 14:06 68 142/107 H 07/08/22 13:00 97 07/08/22 12:50 36.6 C 85 18 173/102 H 97 O2 Del Method 07/08/22 19:15 Room Air 07/08/22 17:40 07/08/22 17:21 07/08/22 16:43 Room Air 07/08/22 16:00 07/08/22 16:00 07/08/22 15:30 07/08/22 15:30 07/08/22 15:01 07/08/22 14:30 07/08/22 14:30 07/08/22 14:04 07/08/22 14:04 07/08/22 14:00 07/08/22 13:30 07/08/22 13:20 07/08/22 14:06 Room Air 07/08/22 13:00 Room Air 07/08/22 12:50 Room Air Laboratory Results Laboratory Results - last 24 hr 07/08/22 07/08/22 07/08/22 13:10 13:10 13:10 WBC 9.07 RBC 4.58 Hgb 14.1 Hct 41.2 MCV 90.0 MCH 30.8 MCHC 34.2 RDW Std Deviation 45.9 RDW Coeff of Alex 13.8 Plt Count 275 MPV 10.3 Immature Gran % (Auto) 0.3 Neut % (Auto) 72.3 Lymph % (Auto) 18.7 Winston % (Auto) 6.9 Eos % (Auto) 0.9 Baso % (Auto) 0.9 Neut # (Auto) 6.55 H Lymph # (Auto) 1.70 Winston # (Auto) 0.63 Eos # (Auto) 0.08 Baso # (Auto) 0.08 Immature Gran # (Auto) 0.03 H PT 10.7 INR 1.0 APTT 29.6 PTT Ratio 1.1 Sodium 137 Potassium 3.7 Chloride 106 Carbon Dioxide 26 Anion Gap 5 BUN 14 Creatinine 0.64 Est Cr Clr Drug Dosing 103.9 Est GFR ( Amer) 119.7 Est GFR (Non-Af Amer) 103.3 BUN/Creatinine Ratio 21.9 H Glucose 85 Calcium 9.6 Magnesium 2.1 Total Bilirubin 0.7 AST 13 ALT 12 Alkaline Phosphatase 92 Troponin I High Sens 4.3 Total Protein 6.9 Albumin 4.1 Globulin 2.8 Albumin/Globulin Ratio 1.5 TSH SARS-CoV-2, RNA, NAAT 07/08/22 07/08/22 13:14 13:15 WBC RBC Hgb Hct MCV MCH MCHC RDW Std Deviation RDW Coeff of Alex Plt Count MPV Immature Gran % (Auto) Neut % (Auto) Lymph % (Auto) Winston % (Auto) Eos % (Auto) Baso % (Auto) Neut # (Auto) Lymph # (Auto) Winston # (Auto) Eos # (Auto) Baso # (Auto) Immature Gran # (Auto) PT INR APTT PTT Ratio Sodium Potassium Chloride Carbon Dioxide Anion Gap BUN Creatinine Est Cr Clr Drug Dosing Est GFR ( Amer) Est GFR (Non-Af Amer) BUN/Creatinine Ratio Glucose Calcium Magnesium Total Bilirubin AST ALT Alkaline Phosphatase Troponin I High Sens Total Protein Albumin Globulin Albumin/Globulin Ratio TSH 1.021 SARS-CoV-2, RNA, NAAT NEGATIVE Diagnostic Findings Chest X-Ray 07/08/22 12:54 XR chest 1V portable HISTORY: Stroke symptoms. COMPARISON: Chest 11/16/2013. FINDINGS: The heart is normal in size. No pleural effusions. No pneumothorax. No focal lung consolidations to suggest pneumonia. No evidence for pulmonary edema. Small linear scarlike density seen within the right lung apex. IMPRESSION: No acute process. ACT 112: Negative or not required by law. Electronically signed by: Uriah Sumner M.D. 07/08/2022 1:[address] 07/08/22 12:[address] OF THE BRAIN; CT ANGIOGRAM OF THE BRAIN; CT ANGIOGRAM OF THE NECK CLINICAL HISTORY: Strokelike symptoms. COMPARISON STUDY: CT of the brain dated 01/15/2012. TECHNIQUE: Unenhanced axial CT scan of the brain is performed. Subsequently, following the IV administration of 120 of Optiray 320, CT angiogram of the head and neck was performed from the aortic arch to the vertex. Images are reviewed in the axial, sagittal, and coronal planes. 3-D MIPS images are created and assessed. IV contrast was administered without complication. All measurements were calculated based on NASCET criteria. A dose lowering technique was utilized adhering to the principles of ALARA. CT DOSE: 1091.20 mGy.cm FINDINGS: Brain parenchyma: The brain parenchyma is normal in appearance. There is no hemorrhage, mass effect, or evidence of acute territorial ischemia by CT criteria. There is no evidence of enhancing mass lesion on the angiogram phase images. The ventricles, sulci, and cisterns are normal in configuration. Mena- white matter differentiation is preserved. No extra-axial fluid collection is seen. Thoracic aorta: Visualized portions of the thoracic aorta are normal in caliber. The aortic arch demonstrates standard 3-vessel anatomy. Right carotid arterial system: Atherosclerotic plaque causes less than 50% luminal narrowing of the distal right common carotid artery. The remainder of the right common carotid artery is widely patent. There is mild to moderate stenosis at the origin of the right external carotid artery. The right internal carotid artery is widely patent. Left carotid arterial system: The left common carotid artery is widely patent, as are the left internal and external carotid arteries. Vertebral arteries: The vertebral arteries are widely patent bilaterally noting left-sided dominance. Subclavian arteries: Widely patent bilaterally. Intracranial vasculature: The internal carotid arteries are patent at the skull base, as are the anterior and middle cerebral arteries bilaterally. The vertebrobasilar system and posterior cerebral arteries are widely patent. There are bilateral posterior communicating arteries. The left vertebral artery is dominant. The right vertebral artery is diminutive and terminates as the PICA. There is no aneurysm, high-grade stenosis, or focal vessel cut off seen throughout the intracranial circulation. Jugular veins: Patent bilaterally. Dural sinuses: Patent. Lung apices: There is advanced emphysema. Upper lobe lung parenchyma is otherwise clear as imaged. Soft tissues: The visualized pharyngeal soft tissues are normal in appearance noting angiographic phase technique. The oropharyngeal airway appears widely patent. The salivary and thyroid glands are normal in appearance. No cervical lymphadenopathy is seen. Skeletal structures: The skeletal structures appear osteopenic. The calvarium appears intact. The cervical spine is maintained noting mild multilevel cervical spondylosis and postoperative change from C3-C4 spinal fusion. No lytic or blastic lesion is seen. Orbits: The bony orbits are intact. Orbital contents are normal as visualized. Sinuses and mastoids: The paranasal sinuses are clear. The mastoid air cells are well pneumatized. IMPRESSION: 1. There is no hemorrhage, mass effect, or evidence of acute territorial ischemia by CT criteria. 2. Unremarkable CT scan of the brain. 3. Unremarkable CT angiogram of the neck noting significant atherosclerotic plaque in the distal right common carotid artery. 4. Advanced emphysema. ACT 112: Negative or not required by law. Electronically signed by: Gwyn Painting M.D. 07/08/2022 1:41 PM Head CTA 07/08/22 12:[address] OF THE BRAIN; CT ANGIOGRAM OF THE BRAIN; CT ANGIOGRAM OF THE NECK CLINICAL HISTORY: Strokelike symptoms. COMPARISON STUDY: CT of the brain dated 01/15/2012. TECHNIQUE: Unenhanced axial CT scan of the brain is performed. Subsequently, following the IV administration of 120 of Optiray 320, CT angiogram of the head and neck was performed from the aortic arch to the vertex. Images are reviewed in the axial, sagittal, and coronal planes. 3-D MIPS images are created and assessed. IV contrast was administered without complication. All measurements were calculated based on NASCET criteria. A dose lowering technique was ut ilized adhering to the principles of ALARA. CT DOSE: 1091.20 mGy.cm FINDINGS: Brain parenchyma: The brain parenchyma is normal in appearance. There is no hemorrhage, mass effect, or evidence of acute territorial ischemia by CT criteria. There is no evidence of enhancing mass lesion on the angiogram phase images. The ventricles, sulci, and cisterns are normal in configuration. Mena- white matter differentiation is preserved. No extra-axial fluid collection is seen. Thoracic aorta: Visualized portions of the thoracic aorta are normal in caliber. The aortic arch demonstrates standard 3-vessel anatomy. Right carotid arterial system: Atherosclerotic plaque causes less than 50% luminal narrowing of the distal right common carotid artery. The remainder of the right common carotid artery is widely patent. There is mild to moderate stenosis at the origin of the right external carotid artery. The right internal carotid artery is widely patent. Left carotid arterial system: The left common carotid artery is widely patent, as are the left internal and external carotid arteries. Vertebral arteries: The vertebral arteries are widely patent bilaterally noting left-sided dominance. Subclavian arteries: Widely patent bilaterally. Intracranial vasculature: The internal carotid arteries are patent at the skull base, as are the anterior and middle cerebral arteries bilaterally. The vertebrobasilar system and posterior cerebral arteries are widely patent. There are bilateral posterior communicating arteries. The left vertebral artery is dominant. The right vertebral artery is diminutive and terminates as the PICA. There is no aneurysm, high-grade stenosis, or focal vessel cut off seen throughout the intracranial circulation. Jugular veins: Patent bilaterally. Dural sinuses: Patent. Lung apices: There is advanced emphysema. Upper lobe lung parenchyma is otherwise clear as imaged. Soft tissues: The visualized pharyngeal soft tissues are normal in appearance noting angiographic phase technique. The oropharyngeal airway appears widely patent. The salivary and thyroid glands are normal in appearance. No cervical lymphadenopathy is seen. Skeletal structures: The skeletal structures appear osteopenic. The calvarium appears intact. The cervical spine is maintained noting mild multilevel cervical spondylosis and postoperative change from C3-C4 spinal fusion. No lytic or blastic lesion is seen. Orbits: The bony orbits are intact. Orbital contents are normal as visualized. Sinuses and mastoids: The paranasal sinuses are clear. The mastoid air cells are well pneumatized. IMPRESSION: 1. There is no hemorrhage, mass effect, or evidence of acute territorial ischemia by CT criteria. 2. Unremarkable CT scan of the brain. 3. Unremarkable CT angiogram of the neck noting significant atherosclerotic plaque in the distal right common carotid artery. 4. Advanced emphysema. ACT 112: Negative or not required by law. Electronically signed by: Gwyn Painting M.D. 07/08/2022 1:41 PM Neck CTA 07/08/22 12:[address] OF THE BRAIN; CT ANGIOGRAM OF THE BRAIN; CT ANGIOGRAM OF THE NECK CLINICAL HISTORY: Strokelike symptoms. COMPARISON STUDY: CT of the brain dated 01/15/2012. TECHNIQUE: Unenhanced axial CT scan of the brain is performed. Subsequently, following the IV administration of 120 of Optiray 320, CT angiogram of the head and neck was performed from the aortic arch to the vertex. Images are reviewed in the axial, sagittal, and coronal planes. 3-D MIPS images are created and assessed. IV contrast was administered without complication. All measurements were calculated based on NASCET criteria. A dose lowering technique was utilized adhering to the principles of ALARA. CT DOSE: 1091.20 mGy.cm FINDINGS: Brain parenchyma: The brain parenchyma is normal in appearance. There is no hemorrhage, mass effect, or evidence of acute territorial ischemia by CT criteria. There is no evidence of enhancing mass lesion on the angiogram phase images. The ventricles, sulci, and cisterns are normal in configuration. Mena- white matter differentiation is preserved. No extra-axial fluid collection is seen. Thoracic aorta: Visualized portions of the thoracic aorta are normal in caliber. The aortic arch demonstrates standard 3-vessel anatomy. Right carotid arterial system: Atherosclerotic plaque causes less than 50% luminal narrowing of the distal right common carotid artery. The remainder of the right common carotid artery is widely patent. There is mild to moderate stenosis at the origin of the right external carotid artery. The right internal carotid artery is widely patent. Left carotid arterial system: The left common carotid artery is widely patent, as are the left internal and external carotid arteries. Vertebral arteries: The vertebral arteries are widely patent bilaterally noting left-sided dominance. Subclavian arteries: Widely patent bilaterally. Intracranial vasculature: The internal carotid arteries are patent at the skull base, as are the anterior and middle cerebral arteries bilaterally. The vertebrobasilar system and posterior cerebral arteries are widely patent. There are bilateral posterior communicating arteries. The left vertebral artery is dominant. The right vertebral artery is diminutive and terminates as the PICA. There is no aneurysm, high-grade stenosis, or focal vessel cut off seen throughout the intracranial circulation. Jugular veins: Patent bilaterally. Dural sinuses: Patent. Lung apices: There is advanced emphysema. Upper lobe lung parenchyma is otherwise clear as imaged. Soft tissues: The visualized pharyngeal soft tissues are normal in appearance noting angiographic phase technique. The oropharyngeal airway appears widely patent. The salivary and thyroid glands are normal in appearance. No cervical lymphadenopathy is seen. Skeletal structures: The skeletal structures appear osteopenic. The calvarium ap pears intact. The cervical spine is maintained noting mild multilevel cervical spondylosis and postoperative change from C3-C4 spinal fusion. No lytic or blastic lesion is seen. Orbits: The bony orbits are intact. Orbital contents are normal as visualized. Sinuses and mastoids: The paranasal sinuses are clear. The mastoid air cells are well pneumatized. IMPRESSION: 1. There is no hemorrhage, mass effect, or evidence of acute territorial ischemia by CT criteria. 2. Unremarkable CT scan of the brain. 3. Unremarkable CT angiogram of the neck noting significant atherosclerotic plaque in the distal right common carotid artery. 4. Advanced emphysema. ACT 112: Negative or not required by law. Electronically signed by: Gwyn Painting M.D. 07/08/2022 1:41 PM Brain MRI 07/08/22 15:35 MRI OF THE BRAIN WITHOUT IV CONTRAST CLINICAL HISTORY: Left-sided weakness and numbness. COMPARISON STUDY: CT of the brain dated 07/08/2022. TECHNIQUE: MRI of the brain was performed utilizing various T1 and T2-weighted sequences in the axial, sagittal, and coronal planes. IV contrast was not administered for this examination. FINDINGS: Brain parenchyma: The brain parenchyma is normal in appearance. There is no hemorrhage or mass effect. There is no restricted diffusion to suggest acute ischemia. Mena-white matter differentiation is preserved. No extra-axial fluid collection is seen. The cerebellar tonsils are normal in configuration. Ventricles, sulci, and cisterns: Normal in configuration. Pituitary and sella: Unremarkable. Intracranial vasculature: Normal flow voids are maintained at the skull base. Orbits: The bony orbits are grossly intact. Orbital contents are normal in appearance. Sinuses and mastoids: Clear. Calvarium: Unremarkable. Cervical cord: Partially visualized cervical spinal cord is normal in morphology and signal intensity. IMPRESSION: No acute intracranial abnormality. ACT 112: Negative or not required by law. Electronically signed by: Gwyn Painting M.D. 07/08/2022 5:27 PM
[2022-07-08] MEDS: NICOTINE 21 MG/24 HR TDSY TD SCH (22:11)
[2022-07-09 06:59] LABS: Basophils # (auto) 0.07 K/uL (0-0.2); Basophils % (auto) 1.1 %; Eosinophils # (auto) 0.25 K/uL (0-0.50); Eosinophils % (auto) 3.8 %; Hematocrit (blood only) 41.6 % (34.1-44.9); Hemoglobin 14.1 g/dl (12.0-16.0); Immature Granulocytes # (auto) 0.01 K/uL (0.00-0.02); Immature Granulocytes % (auto) 0.2 %; Lymphocytes # (auto) 1.44 K/uL (1.2-3.4); Lymphocytes % (auto) 22.1 %; Mean Corpuscular Hemoglobin 30.6 pg (25.0-34.0); Mean Corpuscular Hgb Conc 33.9 g/dL (32.0-36.0); Mean Corpuscular Volume 90.2 fL (80.0-100.0); Mean Platelet Volume 10.6 fL (9.4-12.3); Monocytes # (auto) 0.66 K/uL (0.24-0.82); Monocytes % (auto) 10.1 %; Neutrophils % (auto) 62.7 %; Platelet Count 257 K/uL (130-400); RDW Coefficient of Variation 13.7 % (11.5-14.5); RDW Standard Deviation 45.1 fL (36.4-46.3); Red Blood Count 4.61 M/uL (3.93-5.22); White Blood Count 6.53 K/ul (4.8-10.8)
[2022-07-09 07:16] LABS: BUN Creatinine Ratio 29.9 (10-20); Calcium 9.2 mg/dl (8.5-10.1); Chol HDL Ratio 3.9 (0-5); Creatinine Clr Calc Pharmacy 100.5 ml/min; Est GFR (Non-African American) 101.8 ml/min
[2022-07-09 07:59] LABS: Estimated Average Glucose 120 mg/dl; Hemoglobin A1C 5.8 % (4.5-5.6)
[2022-07-09] MEDS: NICOTINE 21 MG/24 HR TDSY TD SCH (08:34)
[2022-07-09] MEDS ORDERED: ASPIRIN 81 MG ECTAB PO SCH (09:00)
[2022-07-09] MEDS ORDERED: ATORVASTATIN 20 MG TAB PO SCH (11:00)
[2022-07-09] MEDS ORDERED: STROKE PATIENT DISCHARGE STA (11:04)
--- NOTE | 2022-07-09 11:12 | Discharge Summary ---
Date of Service July 09, 2022 Admission HPI Per Admitting Provider Patient is 51 y/o F with PMH anxiety, tobacco use presented to ER with c/o left sided weakness. Patient reports around 11:15am today was washing her deck when had sudden onset of vision loss to left eye, left arm and leg paresthesias and weakness. Patient reports almost fell secondary to left leg weakness. Her left eye vision loss lasted approximately 30 seconds and left upper and lower extremity weakness lasted one minute. Since ER arrival her paresthesias are resolving and now just remain to left hand. She reports taking Anacin (400mg aspirin +32mg caffeine OTC med) prior to arrival. She reports +COVID 06/15/22 with URI symptoms that have completely resolved. Patient states has been under a lot of stress recently with of her brother and mother. Denies fever/chills, diaphoresis, N/V/D/C, LEIGH, dizziness, syncope, neck pain, CP, SOB, orthopnea, palpitations, cough, sore throat, choking, otalgia, rhinorrhea, abdominal pain, extremity edema, rashes, urinary symptoms. In ER patient hypertensive, CT head, CTA head and neck unremarkable. Had telestroke neurology consult in ER recommended hospitalization for further stroke workup. Admission Exam Per Admitting Provider General: no distress, WDWN Head: normocephalic, atraumatic Eyes: PERRL, EOM's intact, conjunctiva non-injected, anicteric ENT: normal inspection external ears, nose, mucous membranes moist Neck: supple, trachea midline Lungs: clear, no respiratory distress, no wheezing/rhonchi/rales CV: RRR, no murmur, no pretibial edema Abd: normal BS, soft, non-tender Ext: no cyanosis, no calf tenderness Neuro: A&O x 3, normal affect. Visual trimble intact. No nystagmus. Facial sensation is intact and symmetric. The face is strong and symmetric. Hearing grossly intact. Soft palate elevates symmetrically, no dysarthria. Shoulder shrug intact. Tongue is midline, normal movement, no fasciculations. muscle tone normal. Strength 5/5 throughout. Bilateral arm and leg sensation intact and symmetric Skin: warm, dry Principal Diagnosis Likely TIA Discharge Exam GENERAL: Alert and oriented x3. NAD, on RA. HEENT: No pallor, no icterus. Pupils equal, round and reactive to light. Oral mucosa moist. NECK: No JVD, no neck masses. HEART: S1 and S2 heard. Regular rate and rhythm. No murmur, no gallop. RESPIRATORY SYSTEM: Normal AP diameter. No accessory muscle use. No wheezing, no crackles. ABDOMEN: Soft, bowel sounds present, nontender, no distention. CENTRAL NERVOUS SYSTEM: No facial droop. Speech is clear. Obeys simple commands. Moves extremities. EXTREMITIES: No edema, no erythema seen. Discharge Data Allergies Allergy/AdvReac Type Severity Reaction Status Date / Time Sulfa (Sulfonamide Allergy Severe Shortness Verified 01/19/17 08:19 Antibiotics) of Breath codeine Allergy Intermediate RASH Verified 01/19/17 05:48 hydrocodone Allergy Intermediate RASH Verified 01/19/17 05:48 Penicillins Allergy Intermediate RASH Verified 01/19/17 05:48 clarithromycin Allergy Mild SHORTNESS Verified 01/19/17 05:48 OF BREATH morphine Allergy Unknown RASH Verified 01/19/17 05:48 Consultations 07/08/22 14:11 ED Decision to Admit Stat 07/08/22 15:35 Consult Neurology Routine Ordered Studies 07/08/22 12:54 CT angio head w con Stat CT angio neck with con Stat CT head/brain wo con Stat 07/08/22 15:35 MR brain wo con Routine Hospital Course (1) TIA (transient ischemic attack): Plan 51-year-old lady with PMH of anxiety, current tobacco abuse presented to the ED 07/08 with signs and symptoms suggestive of likely TIA, A1c was elevated at 5.8 [patient made aware], advised for lifestyle modification. MRI brain negative for any lesions acutely. Echo with bubble study normal. Unremarkable CT angiogram of the neck noting significant atherosclerotic plaque in the distal right common carotid artery. An LDL elevated at 115. Patient started on moderate dose statin, to be uptitrated by her PCP as an outpatient. Patient made aware and advised to closely follow-up with the PCP as an outpatient. Patient was evaluated by neurology, recommends aspirin daily and LDL goal of less than 70. Patient to follow-up with neurology as an outpatient in a month time. Patient's blood pressure were normal while in hospital, hence no blood pressure medications initiated, patient advised to closely monitor her blood pressure. She is being discharged with following instruction at the point of discharge: Follow-up with your primary care physician within a week time. For your diagnosis of likely TIA on the background of elevated LDL at 115, you have been started on low-dose aspirin daily and moderate dose statin at the time of discharge. As discussed at the bedside, recommend to follow healthy lifestyle including regular exercises/heart healthy diet along with above treatment. You will need to follow-up with neurology as an outpatient in a month time. You will also need to follow-up on your lipid levels in 3 months time and you will need to be evaluated for further need for any medication adjustment for your lipid lowering. You have been diagnosed with prediabetes with A1c of 5.8 and as discussed at the bedside, continue with lifestyle modification and follow-up with your PCP closely as an outpatient for ongoing evaluation/management. Cessation of smoking is strongly recommended. Advise to follow-up regularly with your PCP. Take your medications as prescribed. Total Time Total Time Spent Total Time Spent (In Minutes): 35 Discharge Plan Discharge Items Patient Disposition: Home - Self-Care Reason For Visit: STROKE SYMPTOMS Discharge Diagnosis: Likely TIA Activity: Resume your previous activity Non-emergency contact: Primary Care Provider Call non-emergency contact if: you have any medication questions, your symptoms worsen and your temperature is above 101 Follow-up/Referrals: Kiki Motley DO [Primary Care Provider] - Diet: Carb Consistent or DM2 and Heart Healthy Addtl Attending Provider Instructions: Follow-up with your primary care physician within a week time. For your diagnosis of likely TIA on the background of elevated LDL at 115, you have been started on low-dose aspirin daily and moderate dose statin at the time of discharge. As discussed at the bedside, recommend to follow healthy lifestyle including regular exercises/heart healthy diet along with above treatment. You will need to follow-up with neurology as an outpatient in a month time. You will also need to follow-up on your lipid levels in 3 months time and you will need to be evaluated for further need for any medication adjustment for your lipid lowering. You have been diagnosed with prediabetes with A1c of 5.8 and as discussed at the bedside, continue with lifestyle modification and follow-up with your PCP closely as an outpatient for ongoing evaluation/management. Cessation of smoking is strongly recommended. Advise to follow-up regularly with your PCP. Take your medications as prescribed. Pending Studies at Discharge: No Stand-Alone Forms: My [facility], Smoking Cessation Medications and DC Order Prescriptions: New nicotine [Nicoderm CQ] 21 mg/24 hr Patch 24 Hour 21 mg transdermal QAM Qty: 28 0RF atorvastatin 20 mg Tablet 20 mg PO QAM Qty: 30 0RF aspirin 81 mg Tablet,Delayed Release (Dr/Ec) 81 mg PO QAM Qty: 30 0RF Continued naproxen 500 mg Tablet 500 mg PO BID PRN (Reason: Pain) Discharge Orders: Discharge Order (Routine); Ordered 07/09/22 Ordered By: Siva Malave Admission Data Admit Date/Time: 07/08/22 14:22 Attending Provider: Siva Malave Admit Provider: Siva Malave Primary Care Provider: Kiki Motley Other Providers: Siva Malave ; Philip Palomo
[2022-07-09] MEDS ORDERED: ATORVASTATIN 20 MG TAB PO ONE (11:21)
--- NOTE | 2022-07-09 11:30 | Pharmacy Report ---
Pharmacist Stroke Counseling - Date of Service July 09, 2022 - Scope: Pharmacy has been consulted to provide medication discharge counseling for this patient admitted with transient ischemic attack as per the Pharmacist Discharge Counseling for Stroke Patients Protocol. - Medications on Discharge: Home Medications Medication Instructions Recorded Confirmed naproxen 500 mg tablet 500 mg PO BID PRN Pain 07/08/22 07/08/22 New Rx's Medication Instructions Recorded aspirin 81 mg tablet,delayed 81 mg PO QAM #30 tabs 07/09/22 release atorvastatin 40 mg tablet (Lipitor) 40 mg PO DAILY #30 tabs 07/09/22 nicotine 21 mg/24 hr daily 21 mg transdermal QAM #28 ea 07/09/22 transdermal patch (Nicoderm CQ) - Action: The above medications, specifically ones for stroke treatment/prophylaxis, have been reviewed in detail with the patient prior to discharge. This includes indication, common adverse reactions, drug interactions, and medication administration. Medication counseling has been employed using the teach-back method to ensure understanding. - Outcome: The patient has demonstrated understanding of the medications. Additional comments: -patient told me she would not be using nicotine patch -patient is a nurse in private care Thank you for allowing pharmacy to be involved in the care of this patient. Please call [phone] with any additional questions
== END 2022-07-09 12:08 | disposition home or self-care (01) ==
LOC: ED 12:46 → EDINP 12:46 → 2S 15:36